=== PATIENT | male | born 1940 | race Caucasian/White ===

== ENCOUNTER 2018-12-20 17:20 | Inpatient (IN) | payer MEDICARE, OTHER ==
[~2018-12-20] VITALS: Ht 167.6 cm; Wt 63.5 kg
[~2018-12-20 17:20] MED LIST: ALEN40TA2 PO; ASPI-650 PO; CLOP75TA19 PO; ESOM40CA PO; EZET10TA31 PO; LOSA1TAB25 PO; METH10TA5 PO; OLAN7.5T5 PO
--- NOTE | 2018-12-20 17:42 | ERD ---
ER Documentation Chief Complaint Chief Complaint CP HPI The patient is 78-year-old male, presenting to the ER because of right-sided chest pain, dyspnea after he fell a week ago. He was seen at [facility] a week ago and again 2 days ago. He was given [place] for pain and now complains of constipation. The right-sided chest pain is worse with movement and breathing. He denies fever, chills, complains of vague right-sided abdominal pain, denies nausea, vomiting, dysuria. He smokes half a pack a day, denies drinking family said that he. He had a near syncopal episode because of the pain Past medical history: Hypertension, CAD, asthma, COPD, depression, dyslipidemia Past surgical history: Back, appendectomy ROS All systems reviewed and are negative except as per history of present illness. Medications Home Meds Reported Medications Salmeterol Xinaf-Fluticasone* (Advair*) 500/50 Diskus Inhaler, 1 INH INHALATION BID, #1 INHALER 12/20/18 Alendronate Sodium* (Fosamax*) 70 Mg Tablet, 70 MG PO Q 2 WEEK, #4 TAB 12/20/18 Ezetimibe* (Zetia*) 10 Mg Tablet, 10 MG PO HS, TAB 12/20/18 Losartan-Hydrochlorothiazide (Losartan-HCTZ) 100-25 Mg Tab, 1 TAB PO DAILY, TAB 12/20/18 Simvastatin* (Zocor*) 40 Mg Tablet, 40 MG PO QHS, #30 TAB 12/20/18 Folic Acid* (Folic Acid*) 1 Mg Tablet, 1 MG PO DAILY, TAB 12/20/18 Ergocalciferol (Vitamin D2) (VITAMIN D2) 50,000 Unit Capsule, 56204 UNIT PO Q 2 WEEK, CAP 12/20/18 Ferrous Sulfate* (Ferrous Sulfate*) 325 Mg Tabec, 325 MG PO BID, TAB 12/20/18 Clonidine Hcl* (Clonidine Hcl*) 0.1 Mg Tab, 0.1 MG PO BID PRN for NEEDED, TAB 12/20/18 [place]-3 Acid Ethyl Esters (Lovaza) 1 Gm Capsule, 2 GM PO BID, CAP 12/20/18 Pregabalin* (Lyrica*) 75 Mg Capsule, 75 MG PO DAILY, CAP 12/20/18 Vbtmqy-Dkxzmqhq-Vdfrjwi* (Creon DR* 24,000) 24,000 L-76,000-120,000 Unit Capsule.dr, 1 CAP PO WITH MEALS, CAP 12/20/18 Clopidogrel Bisulfate* (Clopidogrel Bisulfate*) 75 Mg Tablet, 75 MG PO DAILY, #3 0 TAB 12/20/18 Discontinued Reported Medications Alendronate Sodium* (Alendronate Sodium*) 40 Mg Tablet, 70 MG PO DAILY, TAB 05/16/14 Esomeprazole Mag Trihydrate (Nexium) 40 Mg Capsule.dr, 40 MG PO DAILY, CAP 05/16/14 Methimazole* (Methimazole*) 10 Mg Tablet, 10 MG PO BID, TAB 05/16/14 Losartan-Hydrochlorothiazide (Losartan-HCTZ) 100-25 Mg Tab, 1 TAB PO DAILY, TAB 05/16/14 Clopidogrel Bisulfate* (Clopidogrel Bisulfate*) 75 Mg Tablet, 75 MG PO DAILY, TAB 05/16/14 Olanzapine* (Olanzapine*) 7.5 Mg Tablet, 5 MG PO DAILY, TAB 05/16/14 Ezetimibe* (Zetia*) 10 Mg Tablet, 10 MG PO DAILY, TAB 05/16/14 Aspirin (Aspirin) 81 Mg Tablet, 81 MG PO DAILY 05/19/12 Allergies Allergies: Coded Allergies: No Known Allergy (Verified , 12/20/18) PMhx/Soc History of Surgery: Yes (BACK SX., APPENDECTOMY, S/P ANGIOPLASTY) Anesthesia Reaction: No Hx Neurological Disorder: No Hx Respiratory Disorders: Yes (ASTHMA, COPD, HX. OF PNA, SOB) Hx Cardiac Disorders: No Hx Psychiatric Problems: Yes (DEPRESSION) Hx Miscellaneous Medical Probl: No (HTN, HIGH CHOLESTEROL) Hx Alcohol Use: Yes Hx Substance Use: No Hx Tobacco Use: No Physical Exam Vitals Vital Signs Date Temp Pulse Resp B/P (MAP) Pulse Ox O2 O2 Flow FiO2 Time Delivery Rate 12/20/18 110 19 162/82 95 Room Air 17:30 (108) 12/20/18 98.8 110 18 164/81 94 17:25 (108) Physical Exam Const: No acute distress. Head: Atraumatic. Eyes: Normal Conjunctiva. ENT: Normal External Ears, Nose and Mouth. Neck: Full range of motion. No meningismus. Resp: Tachypneic, mild bilateral expiratory wheezes, basilar crackle. Cardio: Regular tachycardic. Abd: Soft, non distended, normal bowel sounds, mild to moderate right-sided abdominal tenderness, no rigidity/rebound/CVA tenderness Skin: No petechiae or rashes. Back: No midline or flank tenderness. Ext: No cyanosis, or edema. Neur: Awake and alert. No focal deficit Psych: Normal Mood and Affect. Result Diagram: 12/20/18 18012/20/18 180 Results 24 hrs Laboratory Tests Test 12/20/18 18:05 12/20/18 18:33 White Blood Count 16.2 10^3/ul Red Blood Count 4.63 10^6/ul Hemoglobin 12.3 g/dl Hematocrit 37.5 % Mean Corpuscular Volume 81.0 fl Mean Corpuscular Hemoglobin 26.6 pg Mean Corpuscular Hemoglobin Concent 32.8 g/dl Red Cell Distribution Width 16.1 % Platelet Count 262 10^3/UL Mean Platelet Volume 12.2 fl Immature Granulocytes % 0.900 % Neutrophils % 81.7 % Lymphocytes % 8.8 % Monocytes % 7.2 % Eosinophils % 1.0 % Basophils % 0.4 % Nucleated Red Blood Cells % 0.0 /100WBC Immature Granulocytes # 0.150 10^3/ul Neutrophils # 13.2 10^3/ul Lymphocytes # 1.4 10^3/ul Monocytes # 1.2 10^3/ul Eosinophils # 0.2 10^3/ul Basophils # 0.1 10^3/ul Nucleated Red Blood Cells # 0.0 10^3/ul Prothrombin Time 13.1 Sec Prothrombin Time Ratio 1.0 INR International Normalized Ratio 0.98 Activated Partial Thromboplast Time 31.5 Sec Sodium Level 140 mmol/L Potassium Level 4.5 mmol/L Chloride Level 106 mmol/L Carbon Dioxide Level 23 mmol/L Anion Gap 11 Blood Urea Nitrogen 28 mg/dl Creatinine 1.41 mg/dl Est Glomerular Filtrat Rate mL/min mL/min Glucose Level 132 mg/dl Calcium Level 9.8 mg/dl Total Bilirubin 0.1 mg/dl Direct Bilirubin 0.00 mg/dl Indirect Bilirubin 0.1 mg/dl Aspartate Amino Transf (AST/SGOT) 39 IU/L Alanine Aminotransferase (ALT/SGPT) 13 IU/L Alkaline Phosphatase 79 IU/L Troponin I 0.036 ng/ml Total Protein 7.9 g/dl Albumin 4.3 g/dl Globulin 3.60 g/dl Albumin/Globulin Ratio 1.19 Lipase 60 U/L Bedside Urine pH (LAB) 5.5 Bedside Urine Protein (LAB) 3+ Bedside Urine Glucose (UA) Negative Bedside Urine Ketones (LAB) Negative Bedside Urine Blood 1+ Bedside Urine Nitrite (LAB) Negative Bedside Urine Leukocyte Esterase (L Negative Current Medications Medications Dose Sig/Del Start Time Status Last (Trade) Ordered Route PRN Stop Time Admin Dose Reason Admin Morphine 4 mg ONCE STAT 12/20/18 DC 12/20/18 Sulfate IV 17:58 18:04 (morphine) 12/20/18 18:01 Ondansetron 4 mg ONCE STAT 12/20/18 DC 12/20/18 HCl (Zofran IV 17:58 18:04 Inj) 12/20/18 18:01 Sodium 1,000 ml @ Q1H ONCE 12/20/18 DC 12/20/18 Chloride 1,000 mls/hr IV 19:30 19:22 12/20/18 20:53 Sodium 1,950 ml BOLUS OVER 2 12/20/18 DC Chloride HOURS STAT 20:33 (NS) IV* 12/20/18 20:35 Vancomycin 250 ml @ ONCE ONCE 12/20/18 HCl 125 mls/hr IVPB 21:00 12/20/18 22:59 Cefepime HCl 50 ml @ ONCE ONCE 12/20/18 DC 100 mls/hr IVPB 21:00 12/20/18 21:00 1.25 mg ONCE ONCE 12/20/18 Levalbuterol HHN 21:00 (Xopenex 12/20/18 21:01 Neb) Ipratropium 0.5 mg ONCE ONCE 12/20/18 [place] HHN 21:00 (Atrovent 12/20/18 21:01 0.02% (Neb)) Cefepime HCl 50 ml @ Q12 IVPB 12/20/18 100 mls/hr 21:00 Vancomycin VANCOMYCIN PER 12/20/18 UNV HCl (Vanco PER PHARMACY PROTOCOL XX 21:00 Iv Per Pharmacy) 1.25 mg Q4H RESP 12/20/18 UNV Levalbuterol THERAPY PRN 21:00 (Xopenex HHN wheezing Neb) 1.25 mg Q6H RESP 12/21/18 UNV Levalbuterol THERAPY HHN 02:00 (Xopenex Neb) Ipratropium 0.5 mg Q2H RESP 12/20/18 UNV [place] THERAPY PRN 21:00 (Atrovent HHN 0.02% SHORTNESS OF (Neb)) BREATH Ipratropium 0.5 mg Q6HWA RESP 12/21/18 UNV [place] THERAPY HHN 08:00 (Atrovent 0.02% (Neb)) Budesonide 0.5 mg BID RESP 12/21/18 UNV (Pulmicort THERAPY HHN 09:00 (Neb)) IV Flush 3 ml PER 12/20/18 UNV (NS 3 ml) PROTOCOL IV 21:00 Ondansetron 4 mg Q6H PRN 12/20/18 UNV HCl (Zofran IV 21:00 Inj) NAUSEA/VOMITI NG 650 mg Q6H PRN 12/20/18 UNV Acetaminophen PO .PAIN 1-3 21:00 (Tylenol OR TEMP Tab) 1 tab Q6H PRN 12/20/18 UNV Acetaminophen PO .PAIN 4-6 21:00 / Hydrocodone Bitart ([place] (5/325)) Labetalol 10 mg Q4 PRN IV 12/20/18 UNV HCl sbp >160 21:00 (Labetalol) Procedures/[place] [address] Radiology Main Line: [phone] DIAGNOSTIC IMAGING REPORT Patient: ATIF FRANKLIN : 1940 Age: 78 Sex: M [id number] DOS: 12/20/18 1758 Ordering MD: SÁNCHEZ MELO MD Location: E/R Room/Bed: PROCEDURE: CT Abdomen and Pelvis without contrast. CLINICAL INDICATION: Abdominal pain. TECHNIQUE: CT scan of the abdomen and pelvis without contrast was performed on a multidetector CT scanner. The patient was scanned without intravenous contrast. Coronal and sagittal reformatted images were obtained from the axial source images. Images were reviewed on a high-resolution PACS workstation. DICOM images are available. One or more of the following dose reduction techniques were used: -Automated exposure control. -Adjustment of the mA and/or kV according to patient size. -Use of iterative reconstruction technique. The total exam CTDI equals 6.51 mGy and the total exam DLP equals 392.85 mGy-cm. COMPARISON: Correlation with chest CT 12/14/2018. CT abdomen pelvis 11/05. FINDINGS: Please note that the sensitivity for detection of focal lesions or vascular dis ease is markedly reduced without intravenous contrast. Incomplete imaged bibasilar peribronchial thickening with patchy air space opacities. Trace pericardial effusion. CT abdomen: Liver: Unremarkable. Biliary system: No intra or extrahepatic biliary ductal dilatation. Gallbladder: Unremarkable. Pancreas: Unremarkable. Spleen: Unremarkable. Adrenal glands: Unremarkable. Right kidney: Unremarkable. No renal or ureteric stones. No hydronephrosis or hydroureter. Left kidney: Unremarkable. No renal or ureteric stones. No hydronephrosis or hydroureter. Bowel loops: Scattered diverticulosis without acute diverticulitis. There is no bowel obstruction. Lymph Nodes: There is no mesenteric lymphadenopathy. There is no retroperitoneal lymphadenopathy. CT pelvis: Rectum: Unremarkable. Urinary bladder: Unremarkable. Unenhanced prostate grossly unremarkable. Incomplete imaged penile implant. Lymph nodes: There is no iliac lymphadenopathy. There is no inguinal l ymphadenopathy. Bone: No aggressive osseous lesions. There are mild multilevel degenerative changes of the imaged spine. There is moderate atherosclerotic disease. IMPRESSION: 1. Incompletely imaged bibasilar peribronchial thickening with patchy air space opacities, likely representing multifocal pneumonia in the proper clinical setting. 2. Trace pericardial effusion. 3. Atherosclerosis. 4. Scattered diverticulosis without acute diverticulitis. Otherwise no acute abnormality of the abdomen or pelvis. RPTAT: [facility] Physician Sarath Date Time Electronically viewed and signed by Mary Anne Horton Physician on 12/20/2018 20:16 PH/ CC: SÁNCHEZ MELO MD [id number] [place] [address] Radiology Main Line: [phone] DIAGNOSTIC IMAGING REPORT Patient: ATIF FRANKLIN : 1940 Age: 78 Sex: M MR #: [id number] DOS: 12/20/18 1758 Ordering MD: SÁNCHEZ MELO MD Location: E/R Room/Bed: PROCEDURE: XR Chest. CLINICAL INDICATION: chest pain TECHNIQUE: Single AP view of the chest was obtained COMPARISON: 12/17/2018 FINDINGS: The heart and mediastinum are within normal limits. The pulmonary vasculature are unremarkable. The aorta demonstrates atherosclerotic calcifications. There is no lung consolidation, pleural effusion or pneumothorax. Degenerative change s are seen within the thoracic spine and shoulders. There is no acute osseous abnormality. IMPRESSION: No acute disease. RPTAT: AA .Judith Hoover MD, MD Date Time Electronically viewed and signed by .Judith Hoover MD, MD on 12/20/2018 18:46 .J/ CC: SÁNCHEZ MELO MD [id number] [place] [address] Radiology Main Line: [phone] DIAGNOSTIC IMAGING REPORT Patient: ATIF FRANKLIN : 1940 Age: 78 Sex: M MR #: [id number] DOS: 12/20/18 0000 Ordering MD: SÁNCHEZ MELO MD Location: E/R Room/Bed: PROCEDURE: CT chest without contrast. CLINICAL INDICATION: Pain TECHNIQUE: CT scan of the chest without contrast was performed on a multi- slice CT scanner. The patient was scanned without administration of intravenous contrast. Coronal and sagittal reformatted images were obtained from the axial source images. CTDIvol 272.7 mGy DLP 6.7 mGy-cm One or more of the following dose reduction techniques were used: Automated exposure control. Adjustment of the mA and/or kV according to patient size. Use of iterative reconstruction technique. DICOM images are available COMPARISON: 12/15/2018 FINDINGS: Lungs: Patchy bilateral lower lung areas of consolidation and ground-glass are present with bilateral trace layering effusions. Foci of bibasilar airways occlusion are present. There is generalized airways wall thickening. Mild debris is seen layering within the bronchus intermedius. Emphysema is present within the lungs with bilateral areas of subpleural scarring. Mediastinum: Normal. Cardiovascular: Aortic and coronary artery atherosclerotic calcifications are present. The vascular structures are normal in course and caliber. Lymph nodes: There are no enlarged axillary or mediastinal lymph nodes. Musculoskeletal: Degenerative changes are seen within the thoracic spine and shoulders with no acute osseous abnormality. Upper abdomen: Abdominal findings were given on a separate report. Other: None IMPRESSION: Development of moderate bilateral lower lung areas of patchy consolidation and ground-glass are present with bilateral trace layering effusions. This is suggestive for pneumonia. Bibasilar areas of airways occlusion may represent mucous plugging or aspiration. Bilateral airways wall thickening is seen which could represent airways inflammation which may be chronic. Moderate emphysema. Atherosclerotic disease is present. RPTAT: AA .Judith Hoover MD, MD Date Time Electronically viewed and signed by .Judith Hoover MD, MD on 12/20/2018 20:24 .J/ CC: SÁNCHEZ MELO MD [id number] EKG: Read by emergency physician Rate/Rhythm: Sinus tachycardia 118 beats/min QRS, ST, T-waves: No ST elevation, no T inversion, LAD, artifact Impression: Abnormal EKG MEDICAL MAKING DECISION: The patient is a 78-year-old male, presenting with ac [place] pneumonia, acute dehydration, constipation, hematuria. He was treated with Xopenex 125 mg and Atrovent 0.5 mg for wheezing, vancomycin IV, cefepime IV, normosaline 30 mm/kg IV for acute pneumonia, morphine 4 mg IV for pain, Zofran 4 mg IV for nausea with good response Departure Diagnosis: Primary Impression: PNA (pneumonia) Additional Impressions: Dehydration Hematuria Constipation Anemia Renal insufficiency Condition: Stable Comments I discussed the findings with the patient. I discussed the patient with the hospitalist Dr Nuñez at 8:40 pm. who was made aware of the lab, the treatment, the patient condition. The patient is admitted to [facility] Disclaimer: Inadvertent spelling and grammatical errors are likely due to EHR/dictation software use and do not reflect on the overall quality of patient care. Also, please note that the electronic time recorded on this note does not necessarily reflect the actual time of the patient encounter. SÁNCHEZ MELO MD Dec 20, 2018 17:42
[2018-12-20] MEDS ORDERED: morphine 4 MG/ML VIAL IV STA (17:58)
[2018-12-20] MEDS ORDERED: ONDANSETRON 4 MG INJ IV STA (17:58)
[2018-12-20] MEDS ORDERED: CLOP75TA19 PO (18:35)
[2018-12-20] MEDS ORDERED: LIPA1CAP6 PO (18:36)
[2018-12-20] MEDS ORDERED: LYR75 PO (18:37)
[2018-12-20] MEDS ORDERED: CLON-379 PO (18:39)
[2018-12-20] MEDS ORDERED: OMEG1CAP2 PO (18:39)
[2018-12-20] MEDS ORDERED: FER325 PO (18:41)
[2018-12-20] MEDS ORDERED: FOLI-49 PO (18:42)
[2018-12-20] MEDS ORDERED: ERGO500013 PO (18:42)
[2018-12-20] MEDS ORDERED: LOSA1TAB25 PO (18:43)
[2018-12-20] MEDS ORDERED: SIMV40TA2 PO (18:43)
[2018-12-20] MEDS ORDERED: EZET10TA31 PO (18:44)
[2018-12-20] MEDS ORDERED: ALEN70TA5 PO (18:44)
[2018-12-20] MEDS ORDERED: ADV50050 INHALATION (18:45)
[2018-12-20] MEDS ORDERED: SOD CHLORIDE 0.9% 1,000 ML IV ONE (19:30)
[2018-12-20] MEDS ORDERED: SODIUM CHLORIDE 0.9% 1L BAG IV* STA (20:33)
[2018-12-20] MEDS ORDERED: CEFEPIME 1GM/50 ML (PMX) 50 ML IVPB ONE (21:00)
[2018-12-20] MEDS ORDERED: VANCOMYCIN IV PER PHARMACY XX SCH (21:00)
[2018-12-20] MEDS ORDERED: ACETAMINOPHEN 325 MG TAB PO PRN (21:00)
[2018-12-20] MEDS ORDERED: LEVALBUTEROL (NEB) 1.25 MG/0.5 ML AMP HHN ONE (21:00)
[2018-12-20] MEDS ORDERED: NACL 0.9% 3 ML SYG IV SCH (21:00)
[2018-12-20] MEDS ORDERED: VANCOMYCIN 1 GM (PMX) 250 ML IVPB ONE (21:00)
[2018-12-20] MEDS ORDERED: IPRATROPIUM (NEB) 0.5 MG/2.5 ML AMP HHN ONE (21:00)
[2018-12-20] MEDS ORDERED: IPRATROPIUM (NEB) 0.5 MG/2.5 ML AMP HHN PRN (21:00)
[2018-12-20] MEDS ORDERED: ONDANSETRON 4 MG INJ IV PRN (21:00)
[2018-12-20] MEDS ORDERED: LEVALBUTEROL (NEB) 1.25 MG/0.5 ML AMP HHN PRN (21:00)
[2018-12-20] MEDS ORDERED: LABETALOL HCL 20MG INJ IV PRN (21:00)
[2018-12-20] MEDS: CEFEPIME 1GM/50 ML (PMX) 50 ML IVPB SCH (21:07)
--- NOTE | 2018-12-20 21:19 | HP ---
Date/Time of Note Date/Time of Note DATE: 12/20/18 TIME: 21:18 Assessment/Plan VTE Prophylaxis Pharmacological prophylaxis: other Lines/Catheters IV Catheter Type (from Nrsg): Peripheral IV Assessment/Plan Hospital Course Objective Physical exam General: Patient is laying in bed and answers questions appropriately Mentation: Patient is alert and oriented 4, Head: Normocephalic atraumatic Eyes: EOMI, pupils reactive to light Neck: Supple, nontender, midline Respiratory: Wheezing to auscultation bilaterally Cardiovascular: regular rate, no obvious murmurs Gastrointestinal: Mildly tender to palpation, bowel sounds heard. Neurological: Moves all extremities spontaneously Skin: No new skin lesions Assessment and plan Multifocal pneumonia -IV antibiotic -Nebulizers Sepsis secondary to pneumonia -Broad-spectrum antibiotic -Blood cultures -Mild hydration Shortness of breath -Secondary to pneumonia and acute on chronic COPD COPD exacerbation -Very mild at this time likely due to pneumonia -Nebulizers -Needs to stop smoking -Able to tolerate room air Acute kidney injury versus chronic kidney disease -May be secondary to volume depletion as patient has not been eating or drinking well in the past few days, very mild creatinine elevation, will hydrate and reassess in the a.m. Questionable syncope -Patient doing okay however will get CT of the head to assess -Syncope was last witnessed approximately 3 days ago, no episodes since -Ultrasound carotid as well as echocardiogram ordered Rib pain -Due to fall approximately 1 week ago, no abnormality seen on CT of the chest Constipation -Secondary to patient taking [place], added Colace and MiraLAX as needed Peripheral vascular disease -Continue Plavix, not on baby aspirin Hypertension next-hold losartan and HIDA chlorothiazide as may make acute kidney injury worse, treat as needed Dyslipidemia -Continue home meds Disposition -Admit patient for multifocal pneumonia and mild COPD exacerbation. Result Diagram: 12/20/18 18012/20/181804 Results 24hrs Laboratory Tests Test 12/20/18 18:05 12/20/18 18:33 White Blood Count 16.2 H Red Blood Count 4.63 L Hemoglobin 12.3 L Hematocrit 37.5 L Mean Corpuscular Volume 81.0 L Mean Corpuscular Hemoglobin 26.6 L Mean Corpuscular Hemoglobin Concent 32.8 Red Cell Distribution Width 16.1 H Platelet Count 262 Mean Platelet Volume 12.2 H Immature Granulocytes % 0.900 H Neutrophils % 81.7 H Lymphocytes % 8.8 L Monocytes % 7.2 Eosinophils % 1.0 Basophils % 0.4 Nucleated Red Blood Cells % 0.0 Immature Granulocytes # 0.150 H Neutrophils # 13.2 H Lymphocytes # 1.4 Monocytes # 1.2 H Eosinophils # 0.2 Basophils # 0.1 Nucleated Red Blood Cells # 0.0 Prothrombin Time 13.1 Prothrombin Time Ratio 1.0 INR International Normalized Ratio 0.98 Activated Partial Thromboplast Time 31.5 Sodium Level 140 Potassium Level 4.5 Chloride Level 106 Carbon Dioxide Level 23 Anion Gap 11 Blood Urea Nitrogen 28 H Creatinine 1.41 H Est Glomerular Filtrat Rate mL/min Glucose Level 132 Calcium Level 9.8 Total Bilirubin 0.1 L Direct Bilirubin 0.00 Indirect Bilirubin 0.1 Aspartate Amino Transf (AST/SGOT) 39 Alanine Aminotransferase (ALT/SGPT) 13 Alkaline Phosphatase 79 Troponin I 0.036 Total Protein 7.9 Albumin 4.3 Globulin 3.60 H Albumin/Globulin Ratio 1.19 Lipase 60 Bedside Urine pH (LAB) 5.5 Bedside Urine Protein (LAB) 3+ H Bedside Urine Glucose (UA) Negative Bedside Urine Ketones (LAB) Negative Bedside Urine Blood 1+ H Bedside Urine Nitrite (LAB) Negative Bedside Urine Leukocyte Esterase (L Negative HPI/ROS Admit Date/Time Admit Date/Time Hx of Present Illness Patient is a male with a past medical history significant for severe COPD still smoking, dyslipidemia, peripheral vascular disease, hypertension who presents to [facility] for multiple complaints. According to family at bedside this all began approximately 1 week ago when patient had a fall was witnessed with questionable syncope patient subsequently went to another hospital where they make sure that he had no broken bones and was discharged with [place]. Patient has been taking [place] for that rib pain from the fall and subsequently also became constipated stated he had some mild abdominal pain. Patient's respiratory status at this time also continued to get worse and patient was brought into the ED today. Current patient only has mild shortness of breath, cough, no chest pain at rest but chest pain when having severe coughing and mild abdominal pain and complains of constipation. Patient denies chest pain when not coughing, dizziness, nausea, vomiting, leg pain PMH/Family/Social Past Medical History Medications Current Medications Vancomycin HCl 250 ml @ 125 mls/hr ONCE ONCE IVPB ; Start 12/20/18 at 21:00; Stop 12/20/18 at 22:59 Cefepime HCl 50 ml @ 100 mls/hr Q12 IVPB Last administered on 12/20/18at 21:07; Admin Dose 100 MLS/HR; Start 12/20/18 at 21:00 Vancomycin HCl (Vanco Iv Per Pharmacy) VANCOMYCIN PER PHARMACY PER PROTOCOL XX ; Start 12/20/18 at 21:00; Status UNV Levalbuterol (Xopenex Neb) 1.25 mg Q4H RESP THERAPY PRN HHN wheezing; Start 12/20/18 at 21:00 Levalbuterol (Xopenex Neb) 1.25 mg Q6H RESP THERAPY HHN ; Start 12/21/18 at 02:00 Ipratropium [place] (Atrovent 0.02% (Neb)) 0.5 mg Q2H RESP THERAPY PRN HHN SHORTNESS OF BREATH; Start 12/20/18 at 21:00 Ipratropium [place] (Atrovent 0.02% (Neb)) 0.5 mg Q6HWA RESP THERAPY HHN ; Start 12/21/18 at 08:00 Budesonide (Pulmicort (Neb)) 0.5 mg BID RESP THERAPY HHN ; Start 12/21/18 at 09:00 IV Flush (NS 3 ml) 3 ml PER PROTOCOL IV ; Start 12/20/18 at 21:00 Ondansetron HCl (Zofran Inj) 4 mg Q6H PRN IV NAUSEA/VOMITING; Start 12/20/18 at 21:00 Acetaminophen (Tylenol Tab) 650 mg Q6H PRN PO .PAIN 1-3 OR TEMP; Start 12/20/18 at 21:00 Acetaminophen/ Hydrocodone Bitart ([place] (5/325)) 1 tab Q6H PRN PO .PAIN 4-6; Start 12/20/18 at 21:00 Labetalol HCl (Labetalol) 10 mg Q4H PRN IV sbp >160; Start 12/20/18 at 21:00 Clopidogrel Bisulfate (plaVIX) 75 mg DAILY PO ; Start 12/21/18 at 09:00; Status UNV EZETIMIBE (Zetia) 10 mg HS PO ; Start 12/21/18 at 21:00; Status UNV Ferrous Sulfate (Ferrous Sulfate (Ec)) 325 mg BID PO ; Start 12/21/18 at 09:00; Status UNV Folic Acid (Folic Acid) 1 mg DAILY PO ; Start 12/21/18 at 09:00; Status UNV Amylase/Lipase/ Protease (Creon ([id number])) 1 cap WITH MEALS PO ; Start 12/21/18 at 08:00; Status UNV Pregabalin (Lyrica) 75 mg DAILY PO ; Start 12/21/18 at 09:00; Status UNV Miscellaneous Information 40 mg QHS PO ; Start 12/21/18 at 21:00; Status UNV Docusate Sodium (Colace) 100 mg BID PO ; Start 12/20/18 at 21:30; Status UNV Sodium Chloride 1,000 ml @ 30 mls/hr Q24H IV ; Start 12/20/18 at 21:30; Status UNV Polyethylene Glycol (Miralax) 17 gm DAILY PRN PO CONSTIPATION; Start 12/20/18 at 21:30; Status UNV Coded Allergies: No Known Allergy (Verified , 12/20/18) Social History Smoking Status: Unknown if ever smoked Exam/Review of Systems Vital Signs Vitals Vital Signs Date Temp Pulse Resp B/P (MAP) Pulse Ox O2 O2 Flow FiO2 Time Delivery Rate 12/20/18 98 20 97 Nasal 2.0 20:59 Cannula 12/20/18 162/82 17:30 (108) 12/20/18 98.8 17:25 TIM DONNELLY Dec 20, 2018 21:19
--- NOTE | 2018-12-20 21:38 | NUR ---
VANCOMYCIN PER PHARMACY NOTE PT WT: 65 KG, PT HT: 5'6" VANCOMYCIN 1 GRAM IV X 1 WAS GIVEN IN ER. PLEASE START MAINTENANCE DOSE OF VANCOMYCIN 750MG IV Q24 HOURS FOR NOW (STARTING 12/21 AT 1600). PHARMACY WILL FOLLOW. THANK YOU.
[2018-12-20] MEDS: SOD CHLORIDE 0.9% 1,000 ML IV SCH (22:19)
[2018-12-20] MEDS: DOCUSATE SODIUM 100 MG CAP PO SCH (22:19)
[2018-12-20] MEDS: HYDROCODONE/APAP (5/325) TAB PO PRN ×2 (23:39→23:57)
[2018-12-21] VITALS (19 sets, daily range): BP systolic 116–173; BP diastolic 69–84; PULSE 84–121; RESP 18–33; Ht 167.6 cm; Wt 63.5 kg
[2018-12-21] MEDS ORDERED: GUAIFENESIN/DM 5ML CUP PO ONE (00:30)
[2018-12-21] MEDS: POLYETHYLENE GLYCOL 17 GM PACKET PO PRN ×2 (02:43→20:37)
[2018-12-21] MEDS: SOD CHLORIDE 0.9% 1,000 ML IV SCH (02:50)
[2018-12-21] MEDS: LEVALBUTEROL (NEB) 1.25 MG/0.5 ML AMP HHN SCH ×4 (03:06→20:00)
--- NOTE | 2018-12-21 06:15 | NUR ---
end of shift report pt was brought from ER at 0220. pt arrived with 2L nc. pt alert and oriented x4. admissions questions done with patient. pt had no IV fluids running when arrived from ER. NS at 30ml started as ordered. pt slept well the whole night.
[2018-12-21] MEDS: HYDROCODONE/APAP (5/325) TAB PO PRN ×4 (06:37→20:41)
[2018-12-21] MEDS: DOCUSATE SODIUM 100 MG CAP PO SCH ×2 (08:23→20:37)
[2018-12-21] MEDS: CREON (24K-76K-120K) 1 CAP PO SCH ×3 (08:23→17:53)
[2018-12-21] MEDS: CLOPIDOGREL 75 MG TAB PO SCH (08:24)
[2018-12-21] MEDS: FOLIC ACID 1 MG TAB PO SCH (08:24)
[2018-12-21] MEDS: CEFEPIME 1GM/50 ML (PMX) 50 ML IVPB SCH ×2 (08:24→20:37)
[2018-12-21] MEDS: FERROUS SULFATE (EC) 325 MG TAB PO SCH ×2 (08:24→20:37)
[2018-12-21] MEDS: IPRATROPIUM (NEB) 0.5 MG/2.5 ML AMP HHN SCH ×3 (08:57→20:00)
[2018-12-21] MEDS: BUDESONIDE (NEB) 0.5MG/2ML AMP HHN SCH ×2 (08:57→20:00)
[2018-12-21] MEDS: PREGABALIN 75 MG CAP PO SCH (09:38)
[2018-12-21] MEDS: NICOTINE (21 MG/24 HR) PATCH TRANSDERM SCH (09:39)
[2018-12-21] MEDS: PROMETHAZINE/CODEINE 5ML CUP PO PRN ×2 (09:43→16:39)
--- NOTE | 2018-12-21 11:50 | PN ---
Date/Time of Note Date/Time of Note DATE: 12/21/18 TIME: 11:43 Assessment/Plan VTE Prophylaxis Risk score (from Nsg)>0 risk: 5 SCD applied (from Nsg): Yes Pharmacological prophylaxis: heparin Lines/Catheters IV Catheter Type (from Nrsg): Peripheral IV Urinary Cath still in place: No Assessment/Plan Hospital Course 78 yo male with ho COPD, PAD/CAD who suffered mechanical fall leading to rib trauma who presents with rib pain and found to have pneuomnia and likely CHF Multifocal pneumonia - Suspect this is related to splingintg from rib apin -IV antibiotic -Nebulizers Acute diastolic CHF: - Lasix - TTE pending Rib pain: - No fractures on CT. Pain control. Will add lidoderm patch COPD exacerbation -Very mild at this time likely due to pneumonia -Nebulizers -Needs to stop smoking -Able to tolerate room air Acute kidney injury versus chronic kidney disease -May be secondary to volume depletion as patient has not been eating or drinking well in the past few days, very mild creatinine elevation, will hydrate and reassess in the a.m. Questionable syncope -Patient doing okay however will get CT of the head to assess -Syncope was last witnessed approximately 3 days ago, no episodes since -Ultrasound carotid as well as echocardiogram ordered Constipation -Secondary to patient taking [place], added Colace and MiraLAX as needed Peripheral vascular disease -Continue Plavix, not on baby aspirin Hypertension next-hold losartan and HIDA chlorothiazide as may make acute kidney injury worse, treat as needed Dyslipidemia -Continue home meds Disposition -Admit patient for multifocal pneumonia and mild COPD exacerbation Result Diagram: 12/21/18 0453 12/21/18 0453 Results 24hrs Laboratory Tests Test 12/20/18 18:05 12/20/18 18:33 12/21/18 00:37 12/21/18 04:53 White Blood Count 16.2 H 12.7 #H Red Blood Count 4.63 L 3.89 L Hemoglobin 12.3 L 10.4 L Hematocrit 37.5 L 31.7 L Mean Corpuscular 81.0 L 81.5 L Volume Mean Corpuscular 26.6 L 26.7 L Hemoglobin Mean Corpuscular 32.8 32.8 Hemoglobin Concent Red Cell 16.1 H 15.8 H Distribution Width Platelet Count 262 223 Mean Platelet Volume 12.2 H 11.7 H Immature 0.900 H 0.900 H Granulocytes % Neutrophils % 81.7 H 77.4 H Lymphocytes % 8.8 L 12.3 L Monocytes % 7.2 7.4 Eosinophils % 1.0 1.5 Basophils % 0.4 0.5 Nucleated Red Blood 0.0 0.0 Cells % Immature 0.150 H 0.110 H Granulocytes # Neutrophils # 13.2 H 9.9 H Lymphocytes # 1.4 1.6 Monocytes # 1.2 H 0.9 Eosinophils # 0.2 0.2 Basophils # 0.1 0.1 Nucleated Red Blood 0.0 0.0 Cells # Prothrombin Time 13.1 Prothrombin Time 1.0 Ratio INR International 0.98 Normalized Ratio Activated 31.5 Partial Thromboplast Time Sodium Level 140 138 Potassium Level 4.5 4.3 Chloride Level 106 110 Carbon Dioxide Level 23 25 Anion Gap 11 3 #L Blood Urea Nitrogen 28 H 22 H Creatinine 1.41 H 1.36 H Est Glomerular Filtrat Rate mL/min Glucose Level 132 110 Calcium Level 9.8 8.6 Total Bilirubin 0.1 L 0.1 L Direct Bilirubin 0.00 0.00 Indirect Bilirubin 0.1 0.1 Aspartate Amino 39 26 Transf (AST/SGOT) Alanine 13 20 Aminotransferase (AL T/SGPT) Alkaline Phosphatase 79 60 Troponin I 0.036 Total Protein 7.9 6.5 # Albumin 4.3 3.3 # Globulin 3.60 H 3.20 Albumin/Globulin 1.19 1.03 Ratio Lipase 60 Bedside Urine pH 5.5 (LAB) Bedside Urine 3+ H Protein (LAB) Bedside Urine Negative Glucose (UA) Bedside Urine Negative Ketones (LAB) Bedside Urine Blood 1+ H Bedside Urine Negative Nitrite (LAB) Bedside Urine Negative Leukocyte Esterase (L Lactic Acid Level 1.6 Hemoglobin A1c 5.8 Magnesium Level 2.0 Triglycerides Level 129 Cholesterol Level 141 LDL Cholesterol, 76 Calculated HDL Cholesterol 39 Cholesterol/HDL 3.6 Ratio Subjective 24 Hr Interval Summary Free Text/Dictation Discussed via groundwater consultant. Patient's major complaint is of pain in ribs presents for weeks since fall. He actually says his breathing appears about at baseline. Having frequent coughing Exam/Review of Systems Exam Vitals Vital Signs Date Temp Pulse Resp B/P (MAP) Pulse Ox O2 O2 Flow FiO2 Time Delivery Rate 12/21/18 89 23 142/84 95 Nasal 2.0 10:00 (103) Cannula 12/21/18 97.8 08:00 Intake and Output 12/20/18 12/20/18 12/21/18 1515:00 23:00 07:00 IntakeIntake Total 150 ml BalanceBalance 150 ml Exam A bit uncomfortable appearing Breathign nonlabored but splinting mildly Pain in R ribs + JVD Diffuse rhonchi throughout. No wheezing RRR Abdomen soft nt Ext without edema Results Results 24hrs Laboratory Tests Test 12/20/18 18:05 12/20/18 18:33 12/21/18 00:37 12/21/18 04:53 White Blood Count 16.2 H 12.7 #H Red Blood Count 4.63 L 3.89 L Hemoglobin 12.3 L 10.4 L Hematocrit 37.5 L 31.7 L Mean Corpuscular 81.0 L 81.5 L Volume Mean Corpuscular 26.6 L 26.7 L Hemoglobin Mean Corpuscular 32.8 32.8 Hemoglobin Concent Red Cell 16.1 H 15.8 H Distribution Width Platelet Count 262 223 Mean Platelet Volume 12.2 H 11.7 H Immature 0.900 H 0.900 H Granulocytes % Neutrophils % 81.7 H 77.4 H Lymphocytes % 8.8 L 12.3 L Monocytes % 7.2 7.4 Eosinophils % 1.0 1.5 Basophils % 0.4 0.5 Nucleated Red Blood 0.0 0.0 Cells % Immature 0.150 H 0.110 H Granulocytes # Neutrophils # 13.2 H 9.9 H Lymphocytes # 1.4 1.6 Monocytes # 1.2 H 0.9 Eosinophils # 0.2 0.2 Basophils # 0.1 0.1 Nucleated Red Blood 0.0 0.0 Cells # Prothrombin Time 13.1 Prothrombin Time 1.0 Ratio INR International 0.98 Normalized Ratio Activated 31.5 Partial Thromboplast Time Sodium Level 140 138 Potassium Level 4.5 4.3 Chloride Level 106 110 Carbon Dioxide Level 23 25 Anion Gap 11 3 #L Blood Urea Nitrogen 28 H 22 H Creatinine 1.41 H 1.36 H Est Glomerular Filtrat Rate mL/min Glucose Level 132 110 Calcium Level 9.8 8.6 Total Bilirubin 0.1 L 0.1 L Direct Bilirubin 0.00 0.00 Indirect Bilirubin 0.1 0.1 Aspartate Amino 39 26 Transf (AST/SGOT) Alanine 13 20 Aminotransferase (AL T/SGPT) Alkaline Phosphatase 79 60 Troponin I 0.036 Total Protein 7.9 6.5 # Albumin 4.3 3.3 # Globulin 3.60 H 3.20 Albumin/Globulin 1.19 1.03 Ratio Lipase 60 Bedside Urine pH 5.5 (LAB) Bedside Urine 3+ H Protein (LAB) Bedside Urine Negative Glucose (UA) Bedside Urine Negative Ketones (LAB) Bedside Urine Blood 1+ H Bedside Urine Negative Nitrite (LAB) Bedside Urine Negative Leukocyte Esterase (L Lactic Acid Level 1.6 Hemoglobin A1c 5.8 Magnesium Level 2.0 Triglycerides Level 129 Cholesterol Level 141 LDL Cholesterol, 76 Calculated HDL Cholesterol 39 Cholesterol/HDL 3.6 Ratio Medications Medication Current Medications Cefepime HCl 50 ml @ 100 mls/hr Q12 IVPB Last administered on 12/21/18 08:24; Admin Dose 100 MLS/HR; Start 12/20/18 at 21:00 Vancomycin HCl (Vanco Iv Per Pharmacy) VANCOMYCIN PER PHARMACY PER PROTOCOL XX ; Start 12/20/18 at 21:00 Levalbuterol (Xopenex Neb) 1.25 mg Q4H RESP THERAPY PRN HHN wheezing; Start 12/20/18 at 21:00 Levalbuterol (Xopenex Neb) 1.25 mg Q6H RESP THERAPY HHN Last administered on 12/21/18at 08:57; Admin Dose 1.25 MG; Start 12/21/18 at 02:00 Ipratropium [place] (Atrovent 0.02% (Neb)) 0.5 mg Q2H RESP THERAPY PRN HHN DOC RTNESS OF BREATH Last administered on 12/21/18at 03:06; Admin Dose 0.5 MG; Start 12/20/18 at 21:00 Ipratropium [place] (Atrovent 0.02% (Neb)) 0.5 mg Q6HWA RESP THERAPY HHN Last administered on 12/21/18 08:57; Admin Dose 0.5 MG; Start 12/21/18 at 08:00 Budesonide (Pulmicort (Neb)) 0.5 mg BID RESP THERAPY HHN Last administered on 12/21/18 08:57; Admin Dose 0.5 MG; Start 12/21/18 at 09:00 IV Flush (NS 3 ml) 3 ml PER PROTOCOL IV ; Start 12/20/18 at 21:00 Ondansetron HCl (Zofran Inj) 4 mg Q6H PRN IV NAUSEA/VOMITING Last administered on 12/21/18 06:41; Admin Dose 4 MG; Start 12/20/18 at 21:00 Acetaminophen (Tylenol Tab) 650 mg Q6H PRN PO .PAIN 1-3 OR TEMP; Start 12/20/18 at 21:00 Acetaminophen/ Hydrocodone Bitart ([place] (5/325)) 1 tab Q6H PRN PO .PAIN 4-6 Last administered on 12/21/18 06:37; Admin Dose 1 TAB; Start 12/20/18 at 21:00 Labetalol HCl (Labetalol) 10 mg Q4H PRN IV sbp >160; Start 12/20/18 at 21:00 Clopidogrel Bisulfate (plaVIX) 75 mg DAILY PO Last administered on 12/21/18 08:24; Admin Dose 75 MG; Start 12/21/18 at 09:00 EZETIMIBE (Zetia) 10 mg HS PO ; Start 12/21/18 at 21:00 Ferrous Sulfate (Ferrous Sulfate (Ec)) 325 mg BID PO Last administered on 12/21/18 08:24; Admin Dose 325 MG; Start 12/21/18 at 09:00 Folic Acid (Folic Acid) 1 mg DAILY PO Last administered on 12/21/18 08:24; Admin Dose 1 MG; Start 12/21/18 at 09:00 Amylase/Lipase/ Protease (Creon ([id number])) 1 cap WITH MEALS PO Last administered on 12/21/18 08:23; Admin Dose 1 CAP; Start 12/21/18 at 07:35 Pregabalin (Lyrica) 75 mg DAILY PO Last administered on 12/21/18 09:38; Admin Dose 75 MG; Start 12/21/18 at 09:00 Atorvastatin Calcium (Lipitor) 20 mg QHS PO ; Start 12/21/18 at 21:00 Docusate Sodium (Colace) 100 mg BID PO Last administered on 12/21/18 08:23; Admin Dose 100 MG; Start 12/20/18 at 21:30 Sodium Chloride 1,000 ml @ 30 mls/hr Q24H IV Last administered on 12/21/18 02 :50; Admin Dose 30 MLS/HR; Start 12/20/18 at 21:30 Polyethylene Glycol (Miralax) 17 gm DAILY PRN PO CONSTIPATION Last administered on 12/21/18 02:43; Admin Dose 17 GM; Start 12/20/18 at 21:30 Vancomycin/Sodium Chloride 250 ml @ 125 mls/hr Q24H IVPB ; Start 12/21/18 at 16:00 Nicotine (Nicoderm 21 Mg/ 24hr) 1 patch DAILY TRANSDERM Last administered on 12/21/18 09:39; Admin Dose 1 PATCH; Start 12/21/18 at 09:00 Promethazine HCl/ Codeine (Phenergan/ Codeine) 5 ml Q4H PRN PO COUGH Last administered on 12/21/18 09:43; Admin Dose 5 ML; Start 12/21/18 at 09:00 TUNG WRIGHT MD Dec 21, 2018 11:50
[2018-12-21] MEDS: LIDOCAINE 5% PATCH TD SCH (12:22)
[2018-12-21] MEDS: FUROSEMIDE 20 MG INJ IV SCH ×2 (12:23→17:58)
--- NOTE | 2018-12-21 13:27 | NUR ---
ICU WOUND CARE ROUNDS RECOMMENDATIONS: 1. OFFLOADING: - Turning and repositioning q 2 hours - Sacrococcyx: Cover with foam border dressing for prophylactic protection. Change foam dressing every 3 days and as needed. Assess skin under dressing every shift. - Heel Protectors - Off-load with pillows - bill hiker related areas of concern: - Oxygen related device (Nasal cannula with Earmates for protection) Rounding with Charge nurse, Angelita. Recommendations given to RN. Marika Tejeda, BSN RN CWOCN
--- NOTE | 2018-12-21 15:36 | RADRPT ---
Echocardiogram Report Patient Name: Rashel FRANKLINnt ID: [id number] : 1940 (78y 7m)Study Date: 12/21/2018 8:14:29 AM Gender: MAccession #: [id number] Tech: PA Location: Ref.Physician: TIM DONNELLY Height(Cm): BSA: Weight(Kg): Quality: GoodAccount #: Procedures: Echocardiographic Report: Transthoracic echocardiogram with complete 2D, M-Mode, and doppler examination. Indications: Syncope. Measurements: 2D/M Mode Doppler Measurement Value Normal Range Measurement Value Normal Range LVIDd 2D 3.9 [ 4.2 - 5.8 ] cm JULEE VTI 1.5 [ 2.0 - 4.0 ] cm2 LVIDs 2D 2.5 [ 2.5 - 4.0 ] cm AV Mean Adrian 1.4 [ 70.0 - 90.0 ] cm/sec LVPWd 2D 1.1 [ 0.6 - 1.0 ] cm AV Mean PG 8.0 [ 2.0 - 4.0 ] mmHg IVSd 2D 1.0 [ 0.6 - 1.0 ] cm AV VTI 41.0 cm AoR Diam 2D 3.0 [ 2.6 - 3.4 ] cm LVOT Mean Adrian 0.7 [ 60.0 - 80.0 ] cm/sec EDV 2D 64.3 [ 62.0 - 150.0 ] ml LVOT Mean PG 2.0 [ 1.0 - 3.0 ] mmHg ESV 2D 21.7 [ 21.0 - 61.0 ] ml LVOT Peak Adrian 1.0 [ 70.0 - 110.0 ] cm/sec EF 2D 66.3 [ 52.0 - 72.0 ] percent LVOT Peak PG 4.0 [ 2.0 - 6.0 ] mmHg LA Dimen 2D 2.6 [ 3.0 - 4.0 ] cm LVOT VTI 22.3 [ 20.0 - 30.0 ] cm LVOT Diam 1.9 [ 2.3 - 2.9 ] cm MV E Peak Adrian 0.8 [ 60.0 - 130.0 ] cm/sec MV A Peak Adrian 1.0 [ 100.0 - 120.0 ] cm/sec MV E/A 0.8 [ 0.8 - 1.5 ] ratio MV Decel Time 218 [ 104 - 258 ] msec Lat E` Adrian 0.1 [ 10.0 - 15.0 ] cm/sec Lateral E/E` 12.0 [ 1.0 - 2.0 ] ratio MV E/A 0.8 [ 0.8 - 1.5 ] ratio TR Peak Adrian 2.4 [ 100.0 - 280.0 ] cm/sec TR Peak PG 22.0 mmHg RVSP 32.0 [ 10.0 - 36.0 ] mmHg RA Pressure 10.0 mmHg Findings: Left Ventricle: Normal left ventricular systolic function. Normal left ventricular cavity size. Mild concentric left ventricular hypertrophy. Ejection fraction is visually estimated at 65 %. Tissue Doppler/Mitral Doppler indices are consistent with impaired relaxation (Stage I diastolic dysfunction). Right Ventricle: Normal right ventricular size. Normal right ventricular systolic function. Left Atrium: The left atrium is normal in size. Right Atrium: The right atrium is normal in size. Mitral Valve: Mitral valve leaflets appear mildly thickened. Mild mitral annular calcification. Trace mitral regurgitation. Aortic Valve: Aortic valve Max velocity 2.04 m/sec. Max PG 17.00 mmHg. Mean PG 8.00 mmHg. Aortic sclerosis without significant stenosis. Trace aortic valve regurgitation. Tricuspid Valve: Normal appearance of the tricuspid valve. Estimated peak PA systolic pressure 32 mmHg. There is trace tricuspid regurgitation. Pulmonic Valve: Normal pulmonic valve appearance. Pericardium: Normal pericardium with no significant pericardial effusion. Aorta: Normal aortic root. IVC: Normal size and no respiratory collapse consistent with elevated right atrial pressure. Conclusions: Normal left ventricular systolic function. Normal left ventricular cavity size. Mild concentric left ventricular hypertrophy. Ejection fraction is visually estimated at 65 %. Tissue Doppler/Mitral Doppler indices are consistent with impaired relaxation (Stage I diastolic dysfunction). Mitral valve leaflets appear mildly thickened. Mild mitral annular calcification. Trace mitral regurgitation. Aortic valve Max velocity 2.04 m/sec. Max PG 17.00 mmHg. Mean PG 8.00 mmHg. Aortic sclerosis without significant stenosis. Trace aortic valve regurgitation. Normal appearance of the tricuspid valve. Estimated peak PA systolic pressure 32 mmHg. There is trace tricuspid regurgitation. Normal pericardium with no significant pericardial effusion. Electronically Signed By: Karlos Potts 2018-12-21 15:34:55 PST
[2018-12-21] MEDS ORDERED: VANCOMYCIN 750 MG (PMX) 250 ML IVPB SCH (16:00)
--- NOTE | 2018-12-21 18:27 | NUR ---
Received report from [facility]. Pt to transfer to room 2260. Plan to move to room 2267 when clean due to history of falls
--- NOTE | 2018-12-21 18:39 | NUR ---
TRANSFER NOTE: Report given to Adelina LEE on 2E. Pt is Romansh speaking only. A&Ox4, DUENAS, Lung rhonchi with wet sounding cough, but pt tries not to cough because of right rib/flank pain from fall a few weeks ago. Lidocaine patch placed to right flank area. Medicated q4h prn with [facility] & phenergan syrup. O2 sats 95-97% on 2L NC. Voiding in the urinal. Tolerating diet. Continue current POC.
--- NOTE | 2018-12-21 20:30 | NUR ---
Patient arrived to unit via bed at 1900. Family at bedside. Patient on 2L of oxygen via nasal cannula due to episodes of desaturation when coughing. Ronchi and crackles noted upon auscultation to bilateral upper and lower lobes. Patient states of intermittent productive cough of scant amount of sputum. Unable to assess; will continue to monitor. Patient verbalizes abdominal discomfort due to no BM since 12/10/18. Bowel sounds active. Patient complains of tenderness to RLL upon touch. Educated patient and family on the mechanism of action behind the ordered stool softeners and laxatives. Family stated, "he has tried the Miralax already... is there something we else we can give him?" Educated family to have patient to try Miralax first for tonight and further steps will be taken if no improvement is noted. Family and patient verbalized understanding. No skin breakdown noted upon assessment. Patient with BP of 173/82, HR of 121, and complaints of abdominal pain. Administered [place]; patient denied pain thereafter. BP and HR WNL post-administration of [place]. Educated patient on the importance to call for assistance for safety purposes and to turn every 2 hours for wound prevention. Oriented patient to room, call light, and bed functions. Family and patient verbalized understanding throughout teaching. Safety precautions and hourly rounding currently in place at this time.
[2018-12-21] MEDS: ATORVASTATIN 20 MG TAB PO SCH (20:37)
[2018-12-21] MEDS: EZETIMIBE 10 MG TAB PO SCH (21:56)
[2018-12-22 02:04] VITALS: BP 150/81; PULSE 95; RESP 18
[2018-12-22] MEDS: LEVALBUTEROL (NEB) 1.25 MG/0.5 ML AMP HHN SCH ×4 (02:43→19:30)
[2018-12-22] MEDS: HYDROCODONE/APAP (5/325) TAB PO PRN ×3 (04:03→13:43)
[2018-12-22] MEDS: FUROSEMIDE 20 MG INJ IV SCH (06:06)
--- NOTE | 2018-12-22 06:50 | NUR ---
Patient in room asleep with no signs of distress. Vital signs somewhat stable this shift. Patient complaining of abdominal pain this shift; Administered [place] x2. Patient denied pain thereafter. No coughing episodes noted this shift. Patient currently off oxygen due to adequate oxygen saturation. No BM noted this shift. No acute events noted this shift. All needs met and medications administered per MD order. Patient turned every 2 hours and OOB this shift. Safety precautions and hourly rounding currently in place until change of shift.
--- NOTE | 2018-12-22 07:43 | NUR ---
Patient bp 185/56, HR 100. C/o of headache 06/18. No blood pressure medication scheduled or prn. Informed MD, waiting for further instructions and will continue to monitor patient. Addendum: 12/22/18 at 0857 by KETURAH CHRISTOPHER RN Gave patient Mg 5 to address pain and reassessed pain and blood pressure after. Pain 12/19 and BP 157/77, HR 80.
[2018-12-22 08:00] VITALS: BP 185/86; PULSE 100; RESP 20
--- NOTE | 2018-12-22 08:55 | NUR ---
Patient's daughter called to see if patient had bowel movement after receiving colace and miralax from previous shift since he has been c/o constipation since he has been taking the [place]. Patient has not had a bowel movement at this time and family is requesting something stronger. MD notified and waiting for further orders.
[2018-12-22] MEDS: BUDESONIDE (NEB) 0.5MG/2ML AMP HHN SCH ×2 (09:00→19:30)
[2018-12-22] MEDS: IPRATROPIUM (NEB) 0.5 MG/2.5 ML AMP HHN SCH ×3 (09:02→19:30)
[2018-12-22] MEDS: CEFEPIME 1GM/50 ML (PMX) 50 ML IVPB SCH ×2 (09:56→20:58)
[2018-12-22] MEDS: NICOTINE (21 MG/24 HR) PATCH TRANSDERM SCH (09:56)
[2018-12-22] MEDS: FERROUS SULFATE (EC) 325 MG TAB PO SCH (09:56)
[2018-12-22] MEDS: CLOPIDOGREL 75 MG TAB PO SCH (09:57)
[2018-12-22] MEDS: DOCUSATE SODIUM 100 MG CAP PO SCH ×2 (09:57→20:59)
[2018-12-22] MEDS: CREON (24K-76K-120K) 1 CAP PO SCH ×3 (09:57→17:35)
[2018-12-22] MEDS: PREGABALIN 75 MG CAP PO SCH (09:57)
[2018-12-22] MEDS: FOLIC ACID 1 MG TAB PO SCH (09:57)
[2018-12-22] MEDS ORDERED: KETOROLAC 15 MG INJ IV STA (11:41)
--- NOTE | 2018-12-22 12:05 | PN ---
Date/Time of Note Date/Time of Note DATE: 12/22/18 TIME: 12:01 Assessment/Plan VTE Prophylaxis Risk score (from Nsg)>0 risk: 5 SCD applied (from Ns): Yes SCD contraindicated: patient refusal Pharmacological prophylaxis: heparin Lines/Catheters IV Catheter Type (from Nrsg): Saline Lock Urinary Cath still in place: No Assessment/Plan Hospital Course 78 yo male with ho COPD, PAD/CAD who suffered mechanical fall leading to rib trauma who presents with rib pain and found to have pneuomonia. Rib pain disabling and causing splinting which I believe has led to his pulmonic process Multifocal pneumonia - Suspect this is related to splingintg from rib apin 0- dc vanco. continue IV cefepime. Can dc tomorrow no PO abx Acute diastolic CHF: - Appears euvolvemic now. Will hold further lasix Rib pain: - Severe pain with cough and brething. No fractures on CT but this is affecting his ventilation and likely causing his pneumonia. Pain control. Have added li doderm patch. Will give a dose of toradol today with care given renal dysfunction COPD/emphysema: - not in an exacerbation now. Stable. Maintenance BDs and inhaled steroids CKD II: -Stable Constipation -Secondary to patient taking [place] and [place], added Colace and MiraLAX as needed. Enema. Discontinue PO iron for now Peripheral vascular disease -Continue Plavix, not on baby aspirin Hypertension: - Home meds Dyslipidemia -Continue home meds Disposition - Can go home when he feels up to it. Will need pain control and PO abx Result Diagram: 12/22/18 0650 12/22/18 0650 Results 24hrs Laboratory Tests Test 12/22/18 06:50 White Blood Count 11.4 H Red Blood Count 4.23 L Hemoglobin 11.3 L Hematocrit 34.2 L Mean Corpuscular Volume 80.9 L Mean Corpuscular Hemoglobin 26.7 L Mean Corpuscular Hemoglobin Concent 33.0 Red Cell Distribution Width 15.8 H Platelet Count 260 Mean Platelet Volume 11.4 H Immature Granulocytes % 1.300 H Neutrophils % 75.1 Lymphocytes % 12.8 L Monocytes % 8.2 Eosinophils % 2.1 Basophils % 0.5 Nucleated Red Blood Cells % 0.0 Immature Granulocytes # 0.150 H Neutrophils # 8.6 H Lymphocytes # 1.5 Monocytes # 0.9 Eosinophils # 0.2 Basophils # 0.1 Nucleated Red Blood Cells # 0.0 Sodium Level 137 Potassium Level 3.9 Chloride Level 101 Carbon Dioxide Level 26 Anion Gap 10 # Blood Urea Nitrogen 25 H Creatinine 1.52 H Est Glomerular Filtrat Rate mL/min Glucose Level 156 Calcium Level 9.3 Subjective 24 Hr Interval Summary Free Text/Dictation TTE with normal EF, mild diastolic disfunction Continues to complain of disabling rib pain. Very severe pain with coughing. Splints. Does not have shortness of breath aside from rib pain. Also feels co nstipated Exam/Review of Systems Exam Vitals Vital Signs Date Temp Pulse Resp B/P (MAP) Pulse Ox O2 O2 Flow FiO2 Time Delivery Rate 12/22/18 94 18 94 21 09:12 12/22/18 98.6 185/86 08:00 (119) 12/21/18 Nasal 2.0 20:30 Cannula Intake and Output 12/21/18 12/21/18 12/22/18 1515:00 23:00 07:00 IntakeIntake Total 875 ml 475 ml OutputOutput Total 650 ml 575 ml BalanceBalance 225 ml -100 ml Exam Breathing comfortably on RA No wheezing but does have diffuse rhonchi b/l Pain in R side ribs RRR, flat neck veins Abodmen soft nt nd Ext without edema Results Results 24hrs Laboratory Tests Test 12/22/18 06:50 White Blood Count 11.4 H Red Blood Count 4.23 L Hemoglobin 11.3 L Hematocrit 34.2 L Mean Corpuscular Volume 80.9 L Mean Corpuscular Hemoglobin 26.7 L Mean Corpuscular Hemoglobin Concent 33.0 Red Cell Distribution Width 15.8 H Platelet Count 260 Mean Platelet Volume 11.4 H Immature Granulocytes % 1.300 H Neutrophils % 75.1 Lymphocytes % 12.8 L Monocytes % 8.2 Eosinophils % 2.1 Basophils % 0.5 Nucleated Red Blood Cells % 0.0 Immature Granulocytes # 0.150 H Neutrophils # 8.6 H Lymphocytes # 1.5 Monocytes # 0.9 Eosinophils # 0.2 Basophils # 0.1 Nucleated Red Blood Cells # 0.0 Sodium Level 137 Potassium Level 3.9 Chloride Level 101 Carbon Dioxide Level 26 Anion Gap 10 # Blood Urea Nitrogen 25 H Creatinine 1.52 H Est Glomerular Filtrat Rate mL/min Glucose Level 156 Calcium Level 9.3 Medications Medication Current Medications Cefepime HCl 50 ml @ 100 mls/hr Q12 IVPB Last administered on 12/22/18 09:56; Admin Dose 100 MLS/HR; Start 12/20/18 at 21:00 Vancomycin HCl (Vanco Iv Per Pharmacy) VANCOMYCIN PER PHARMACY PER PROTOCOL XX ; Start 12/20/18 at 21:00 Levalbuterol (Xopenex Neb) 1.25 mg Q4H RESP THERAPY PRN HHN wheezing; Start 12/20/18 at 21:00 Levalbuterol (Xopenex Neb) 1.25 mg Q6H RESP THERAPY HHN Last administered on 12/22/18at 09:01; Admin Dose 1.25 MG; Start 12/21/18 at 02:00 Ipratropium [place] (Atrovent 0.02% (Neb)) 0.5 mg Q2H RESP THERAPY PRN HHN SHORTNESS OF BREATH Last administered on 12/21/18at 03:06; Admin Dose 0.5 MG; Start 12/20/18 at 21:00 Ipratropium [place] (Atrovent 0.02% (Neb)) 0.5 mg Q6HWA RESP THERAPY HHN Last administered on 12/22/18at 09:02; Admin Dose 0.5 MG; Start 12/21/18 at 08:00 Budesonide (Pulmicort (Neb)) 0.5 mg BID RESP THERAPY HHN Last administered on 12/22/18at 09:00; Admin Dose 0.5 MG; Start 12/21/18 at 09:00 IV Flush (NS 3 ml) 3 ml PER PROTOCOL IV ; Start 12/20/18 at 21:00 Ondansetron HCl (Zofran Inj) 4 mg Q6H PRN IV NAUSEA/VOMITING Last administered on 12/21/18at 06:41; Admin Dose 4 MG; Start 12/20/18 at 21:00 Acetaminophen (Tylenol Tab) 650 mg Q6H PRN PO .PAIN 1-3 OR TEMP; Start 12/20/18 at 21:00 Labetalol HCl (Labetalol) 10 mg Q4H PRN IV sbp >160; Start 12/20/18 at 21:00 Clopidogrel Bisulfate (plaVIX) 75 mg DAILY PO Last administered on 12/22/18at 09:57; Admin Dose 75 MG; Start 12/21/18 at 09:00 EZETIMIBE (Zetia) 10 mg HS PO Last administered on 12/21/18 21:56; Admin Dose 10 MG; Start 12/21/18 at 21:00 Ferrous Sulfate (Ferrous Sulfate (Ec)) 325 mg BID PO Last administered on 12/22/18 09:56; Admin Dose 325 MG; Start 12/21/18 at 09:00 Folic Acid (Folic Acid) 1 mg DAILY PO Last administered on 12/22/18 09:57; Admin Dose 1 MG; Start 12/21/18 at 09:00 Amylase/Lipase/ Protease (Creon ([id number])) 1 cap WITH MEALS PO Last administered on 12/22/18 09:57; Admin Dose 1 CAP; Start 12/21/18 at 07:35 Pregabalin (Lyrica) 75 mg DAILY PO Last administered on 12/22/18 09:57; Admin Dose 75 MG; Start 12/21/18 at 09:00 Atorvastatin Calcium (Lipitor) 20 mg QHS PO Last administered on 12/21/18 20:37; Admin Dose 20 MG; Start 12/21/18 at 21:00 Docusate Sodium (Colace) 100 mg BID PO Last administered on 12/22/18 09:57; Admin Dose 100 MG; Start 12/20/18 at 21:30 Polyethylene Glycol (Miralax) 17 gm DAILY PRN PO CONSTIPATION Last administered on 12/21/18 20:37; Admin Dose 17 GM; Start 12/20/18 at 21:30 Vancomycin/Sodium Chloride 250 ml @ 125 mls/hr Q24H IVPB Last administered on 12/21/18 16:40; Admin Dose 125 MLS/HR; Start 12/21/18 at 16:00 Nicotine (Nicoderm 21 Mg/ 24hr) 1 patch DAILY TRANSDERM Last administered on 12/22/18 09:56; Admin Dose 1 PATCH; Start 12/21/18 at 09:00 Promethazine HCl/ Codeine (Phenergan/ Codeine) 5 ml Q4H PRN PO COUGH Last administered on 12/21/18 16:39; Admin Dose 5 ML; Start 12/21/18 at 09:00 Lidocaine (Lidoderm) 1 patch DAILY TD Last administered on 12/21/18at 12:22; Admin Dose 1 PATCH; Start 12/21/18 at 12:00 Acetaminophen/ Hydrocodone Bitart ([place] (5/325)) 1 tab Q4H PRN PO MODERATE PAIN LEVEL 4-6 Last administered on 12/22/18 07:50; Admin Dose 1 TAB; Start 12/21/18 at 13:00 TUNG WRIGHT MD Dec 22, 2018 12:05
[2018-12-22] MEDS: LIDOCAINE 5% PATCH TD SCH (13:35)
[2018-12-22 14:00] VITALS: BP 153/63; PULSE 111; RESP 18
[2018-12-22] MEDS: ATORVASTATIN 20 MG TAB PO SCH (20:58)
[2018-12-22] MEDS: EZETIMIBE 10 MG TAB PO SCH (20:58)
[2018-12-22 21:03] VITALS: BP 135/79; PULSE 100; RESP 16
[2018-12-23] MEDS: LEVALBUTEROL (NEB) 1.25 MG/0.5 ML AMP HHN SCH ×4 (00:43→20:38)
[2018-12-23 02:09] VITALS: BP 139/77; PULSE 102; RESP 16
--- NOTE | 2018-12-23 03:21 | NUR ---
nurses notes: patient alert and oriented x3.ambulates with steady gait-standby assist.no respiratory distress noted.denies any pain.call light within reach instructed to call for assistance verbalized understanding.slept at intervals.needs attended.bed alarm on.bed in lowest position.no acute changes overnight.monitored.
[2018-12-23] MEDS: IPRATROPIUM (NEB) 0.5 MG/2.5 ML AMP HHN SCH ×3 (07:35→20:38)
[2018-12-23] MEDS: BUDESONIDE (NEB) 0.5MG/2ML AMP HHN SCH ×2 (07:48→20:40)
[2018-12-23 07:50] VITALS: BP 150/84; PULSE 93; RESP 18
[2018-12-23] MEDS: HYDROCODONE/APAP (5/325) TAB PO PRN (09:46)
[2018-12-23] MEDS: POLYETHYLENE GLYCOL 17 GM PACKET PO PRN (09:47)
[2018-12-23] MEDS: PREGABALIN 75 MG CAP PO SCH (09:47)
[2018-12-23] MEDS: DOCUSATE SODIUM 100 MG CAP PO SCH ×2 (09:47→21:58)
[2018-12-23] MEDS: LIDOCAINE 5% PATCH TD SCH (09:47)
[2018-12-23] MEDS: FOLIC ACID 1 MG TAB PO SCH (09:47)
[2018-12-23] MEDS: CREON (24K-76K-120K) 1 CAP PO SCH ×3 (09:47→17:30)
[2018-12-23] MEDS: CLOPIDOGREL 75 MG TAB PO SCH (09:47)
[2018-12-23] MEDS: NICOTINE (21 MG/24 HR) PATCH TRANSDERM SCH (09:47)
[2018-12-23] MEDS: CEFEPIME 1GM/50 ML (PMX) 50 ML IVPB SCH ×2 (09:48→21:59)
--- NOTE | 2018-12-23 10:48 | NUR ---
Dr. Martinez at bedside with patient. States he is patients primary doctor and was not informed patient was in hospital. He is ordering attending be changed to him per family request and being patients primary doctor. Notified Dr. Ewing of Dr. Martinez's order and that he would like to speak with him. Waiting for response. Charge Nurse aware. Addendum: 12/23/18 at 1109 by KETURAH CHRISTOPHER RN Dr. Ewing aware and ordered change of attending to Dr. Martinez and spoke to Dr. Martinez regarding patient care. Admitting aware of order.
--- NOTE | 2018-12-23 11:48 | HP ---
Date/Time of Note Date/Time of Note DATE: 12/23/18 TIME: 11:14 Assessment/Plan VTE Prophylaxis Risk score (from Ns)>0 risk: 4 SCD applied (from Ns): Yes Pharmacological prophylaxis: LMWH, other (Patient was encouraged to get up and walk.) Pharm contraindication: low risk/ambulating, renal impairment Lines/Catheters IV Catheter Type (from Nrs): Saline Lock Central line still needed: No Urinary Cath still in place: No Reason Cath still needed: urinary retention, other (indicate) (Dysuria with nocturia x2-3.) Assessment/Plan Assessment/Plan COPD, PAD/CAD who suffered mechanical fall leading to rib trauma who presents with rib pain and found to have pneuomnia and likely CHF 1.severe right sided inferior lateral chest pain possible rib fracture reevaluate the CT .rib pain: - No fractures on CT. Pain control. Continue Lidoderm patch 2.Multifocal pneumonia-on CT - Suspect this is related to splingintg from rib apin Continue antibiotics-IV antibiotic Intensify-Nebulizers 3.Acute diastolic CHF: - Lasix - TTE pending 4.COPD exacerbation -Very mild at this time likely due to pneumonia -Nebulizers -Needs to stop smoking-5 days no cigarettes. We will add a small dose of Lidoderm patch 7 mg. Daily. -Able to tolerate room air 5.Acute kidney injury versus chronic kidney disease -May be secondary to volume depletion as patient has not been eating or drinking well in the past few days, very mild creatinine elevation, will hydrate and request a nephrology consult 6.Questionable syncope-actually the patient did not fell down although he described this as a loss of consciousness. But definitely he lost some part of his awareness about his surroundings about himself that he cannot recall what happened but again no episode of fall. -Patient doing okay however will get CT of the head to assess -Syncope was first well was on the fifth to second and was on the seventh according to him he had 2 other episodes while going to [facility] second time and another episode while coming to the [facility] last witnessed approximately 3 days ago, no episodes since in the hospital. -Ultrasound carotid as well as echocardiogram noted. 7.Constipation -Secondary to patient taking [place], added Colace and MiraLAX as needed-improving 8.Peripheral vascular disease-No evidence for hemodynamically significant stenosis in the bilateral internal carotid arteries- by validated velocity measurements. -Continue Plavix, not on baby aspirin 9.Hypertension-now normotensive; next-hold losartan and HIDA chlorothiazide as may make acute kidney injury worse, treat as needed 10.Dyslipidemia -Continue home meds 11. Nicotine addiction 12. Diverticulosis no diverticulitis. 13. Near syncopal episodes 14. Hypoxemia currently on home oxygen pulmonary consult will be requested- 15. Pericardial effusion on the CT of the chest 16. Anemia of chronic disease- anemia workup 17. Gastroesophageal reflux disease with history of gastritis. 18. Trace mitral and tricuspid insufficiency with aortic stenosis. 19. Pulmonary hypertension with estimated pulmonary artery pressure 32 20. Chronic sinusitis 21. Anxiety disorder with memory impairment-mild cerebral atrophy on the CT of the head 22. Leukocytosis improving 23. Incomplete data we will get more information from [facility] Disposition -Admit patient for multifocal pneumonia and mild COPD exacerbation Result Diagram: Result Diagram: 12/22/1850 12/22/1850 HPI/ROS Admit Date/Time Admit Date/Time December 20, 2018 date of admission; taking over care of the patient as a primary care physician since December 23, 2018. I reviewed the old chart and had a conversation with attending physician. She was taken from patient but conversation with the and the relative who was in the room. Actually the patient had a episode of accidental heat to the edge of a table at home on December 14, 2018 which was so strong that he described it as "I lost consciousness". More detailed questioning revealed that he did not fell down but there is a moment when he cannot recall what happened because the patient the pain was awfully strong. The patient was unable to complete deeply and any movement was severely exacerbating the pain. Time of the sixth dictation I do not have the data from [facility] where he was transferred laboratory workup was done and CT of the chest also was done and sent home on [place] exact dose unknown. According to him [place] helped him to control the pain but after 2 days whenever he was coughing the pain is becoming so strong that he describes it again as I lost consciousness. Again he denied any episode of fall he denies hitting his head or any place. And his pain was localized in the right side of inferior chest posteriorly laterally with severe exacerbation while she was coughing. After worsening the condition he was second time transferred to the [facility] emergency room who was evaluated and sent back home on pain medications. Condition continued to worsen his shortness of breath was getting worse his movements are exacerbating the pain also was having of having chills which she describes as feeling cold whenever he was getting out of the bed. According to him he had a third episode of loss of consciousness when 4 some period of time seconds minutes he does not remember what happened with him and basically trigger of the condition was the pain in the right side of her chest area laterally. The emergency room of [facility] was full patient was transferred to the [facility] where patient waited for almost 10 hours by being in the terrible pain and finally was admitted on the second CT was done. Reviewed all data the patient had a WBC of 16,000 along with multifocal pneumonia diagnosis by the CT report on clinically with evaluation and started on antibiotics and hydration for dehydration with elevated physician #1 creatinine level. Patient continues to have a sputum production he is protecting his right inferior side of the chest mainly from excessive movements while coughing and when he is little bit late the pain is reaching the 20 degree of 10/10. Continues to wheeze. He states that he did did not smoke for last 5 days which is a record for him. Somehow it was not informed that he is here in 2 days family asked me to take over the care they already called to radiology department asked the radiologist to reevaluate for possible rib fractures T9-T10 possible T11 which by my evaluation of the CT there is a suspicion for fracture without dislocation. Definitely patient does not have a pneumothorax and at the at this stage of a treatment plan overall condition is improved particularly pain control and pneumonia related symptoms will continue current treatment putting main attention on source of her pain and possible intercostal nerve block while in the hospital. Actually he is unable to move without help he is unable to get up with due to the severe pain but clinically he has high suspicion for a refracture on the right side T10-T11 possible T9. ROS Constitutional: improved, fatigue, nausea, poor po, weight change; No no complaints, No chills, No diaphoresis, No disoriented, No febrile, No other Eyes: discharge, redness; No no complaints, No pain, No visual change, No other ENT: congestion, sore throat; No no complaints, No bleeding, No pain, No discharge, No dysphagia, No other Respiratory: cough, pleuritic pain, shortness of breath, sputum, wheezing, other (Denies hemoptysis.); No no complaints, No pain Cardiovascular: chest pain, lightheadedness, orthopenea, palpitations, par oxysmal nocturnal dyspnea; No no complaints, No edema, No other Gastrointestinal: constipation (After taking the [place] but now he is having a bowel movement after taking MiraLAX and Colace.), decreased appetite; No no complaints, No pain, No blood, No diarrhea, No flatus, No nausea, No passing stool, No vomiting, No other Genitourinary: dysuria, flank pain; No no complaints, No bleeding, No discharge, No hematuria, No other Musculoskeletal: back pain, bone/joint pain, neck pain Skin: pruritis, rash; No no complaints, No bruising, No erythema, No laceration, No skin lesions, No other Neurologic: dizziness, headache; No no complaints, No confusion, No focal-weakness, No syncope, No seizure, No other Endocrine: dry skin, weight change (He lost about 2 pounds during the last week mainly by not eating.); No no complaints, No polyuria, No polydypsia, No temp intolerance, No other Lymphatic: No no complaints, No adenopathy, No tender nodes, No lymphadema, No other Psychological: anxiety, depression, other (Memory impairment with recurrent episodes of having most probably near syncopal episode which he describes as loss of consciousness.); No no complaints, No nl mood/affect, No confusion, No suicidal Immunologic: No no complaints, No immunodeficiency, No pruritis, No rhinitis, No urticaria, No other PMH/Family/Social Past Medical History Medical History: angina, colitis, congestive heart failure, coronary artery disease, diverticulitis, GERD, GI bleed, high cholesterol, renal disease, urinary tract infection Medications Current Medications Cefepime HCl 50 ml @ 100 mls/hr Q12 IVPB Last administered on 12/23/18at 09:48; Admin Dose 100 MLS/HR; Start 12/20/18 at 21:00 Levalbuterol (Xopenex Neb) 1.25 mg Q4H RESP THERAPY PRN HHN wheezing; Start 12/20/18 at 21:00 Levalbuterol (Xopenex Neb) 1.25 mg Q6H RESP THERAPY HHN Last administered on 12/23/18 07:35; Admin Dose 1.25 MG; Start 12/21/18 at 02:00 Ipratropium [place] (Atrovent 0.02% (Neb)) 0.5 mg Q2H RESP THERAPY PRN HHN S HORTNESS OF BREATH Last administered on 12/21/18 03:06; Admin Dose 0.5 MG; Start 12/20/18 at 21:00 Ipratropium [place] (Atrovent 0.02% (Neb)) 0.5 mg Q6HWA RESP THERAPY HHN Last administered on 12/23/18 07:35; Admin Dose 0.5 MG; Start 12/21/18 at 08:00 Budesonide (Pulmicort (Neb)) 0.5 mg BID RESP THERAPY HHN Last administered on 12/23/18 07:48; Admin Dose 0.5 MG; Start 12/21/18 at 09:00 IV Flush (NS 3 ml) 3 ml PER PROTOCOL IV ; Start 12/20/18 at 21:00 Ondansetron HCl (Zofran Inj) 4 mg Q6H PRN IV NAUSEA/VOMITING Last administered on 12/21/18 06:41; Admin Dose 4 MG; Start 12/20/18 at 21:00 Acetaminophen (Tylenol Tab) 650 mg Q6H PRN PO .PAIN 1-3 OR TEMP; Start 12/20/18 at 21:00 Labetalol HCl (Labetalol) 10 mg Q4H PRN IV sbp >160; Start 12/20/18 at 21:00 Clopidogrel Bisulfate (plaVIX) 75 mg DAILY PO Last administered on 12/23/18 09:47; Admin Dose 75 MG; Start 12/21/18 at 09:00 EZETIMIBE (Zetia) 10 mg HS PO Last administered on 12/22/18 20:58; Admin Dose 10 MG; Start 12/21/18 at 21:00 Folic Acid (Folic Acid) 1 mg DAILY PO Last administered on 12/23/18 09:47; Admin Dose 1 MG; Start 12/21/18 at 09:00 Amylase/Lipase/ Protease (Creon ([id number])) 1 cap WITH MEALS PO Last administered on 12/23/18 09:47; Admin Dose 1 CAP; Start 12/21/18 at 07:35 Pregabalin (Lyrica) 75 mg DAILY PO Last administered on 12/23/18 09:47; Admin Dose 75 MG; Start 12/21/18 at 09:00 Atorvastatin Calcium (Lipitor) 20 mg QHS PO Last administered on 12/22/18 20:58; Admin Dose 20 MG; Start 12/21/18 at 21:00 Docusate Sodium (Colace) 100 mg BID PO Last administered on 12/23/18 09:47; Admin Dose 100 MG; Start 12/20/18 at 21:30 Polyethylene Glycol (Miralax) 17 gm DAILY PRN PO CONSTIPATION Last administered on 12/23/18 09:47; Admin Dose 17 GM; Start 12/20/18 at 21:30 Nicotine (Nicoderm 21 Mg/ 24hr) 1 patch DAILY TRANSDERM Last administered on 12/23/18 09:47; Admin Dose 1 PATCH; Start 12/21/18 at 09:00 Promethazine HCl/ Codeine (Phenergan/ Codeine) 5 ml Q4H PRN PO COUGH Last admi nistered on 12/21/18 16:39; Admin Dose 5 ML; Start 12/21/18 at 09:00 Lidocaine (Lidoderm) 1 patch DAILY TD Last administered on 12/23/18 09:47; Admin Dose 1 PATCH; Start 12/21/18 at 12:00 Acetaminophen/ Hydrocodone Bitart ([place] (5/325)) 1 tab Q4H PRN PO MODERATE PAIN LEVEL 4-6 Last administered on 12/23/18 09:46; Admin Dose 1 TAB; Start 12/21/18 at 13:00 Coded Allergies: No Known Allergy (Verified , 12/20/18) Family History Significant Family History: heart disease Social History Alcohol Use: rarely Smoking Status: Current every day smoker Drug Use: none Exam/Review of Systems Vital Signs Vitals Vital Signs Date Temp Pulse Resp B/P (MAP) Pulse Ox O2 O2 Flow FiO2 Time Delivery Rate 12/23/18 Nasal 2.0 09:05 Cannula 12/23/18 97.3 93 18 150/84 98 07:50 (106) 12/23/18 21 07:35 Intake and Output 12/22/18 12/22/18 12/23/18 1515:00 23:00 07:00 IntakeIntake Total 400 ml 350 ml BalanceBalance 400 ml 350 ml Exam Constitutional: alert, oriented, well developed, distress, frail, other (Difficulty to communicate secondary to hearing impairment and on and off holding the right side of her chest to alleviate the pain and help to prevent from exacerbation.); No non-verbal Psych: anxiety, depression; No no complaints, No nl mood/affect, No confusion, No suicidal, No other Head: normocephalic, atraumatic; No lacerations, No hematomas, No other Eyes: EOMI, nl lids, nl sclera (Erythematous conjunctiva.); No nl conjunctiva, No PERRL, No icteric, No fundi, disc, No other ENMT: nl nasal mucosa & septum, tympanic membranes (Sclerotic.); No nl external ears & nose, No nl lips & teeth, No mucosa pink and moist, No intubated, No other Neck: jvd, bruits, nuchal rigidity; No supple, No non-tender, No masses, No thyromegaly, No other Respiratory: congested cough, crackles/rales, diminished breath sounds, labored breathing, wheezing (Diffuse bilaterally right more than left lower lung zone more prominent than upper.) Cardiovascular: regular rate and rhythm, bruits, irregular rhythm, jugular venous distention (JVD), murmurs/extra sounds, systolic murmur; No nl pulses, No diastolic murmur, No edema, No gallop, No rub, No S3, No S4, No other Gastrointestinal: soft, nl liver, spleen, bowel sounds, rebound or guarding; No non-tender, No ascites, No distended, No firm, No hepatomegaly, No mass, No splenomegaly, No surgical scars, No tender, No other Genitourinary - Male: nl penis, nl scrotum, CVA tenderness (On the right side laterally without evidence of crepitation and no hematomas at the site of trauma which patient describes no focal changes no wounds no abrasions.); No discharge, No other Musculoskeletal: nl gait and stance, joint tenderness, muscle tone, muscle weakness (Severely decreased muscular tone and mass); No nl extremities to inspection, No range of motion, No spine non-tender, No swelling, No other Extremities: normal pulses, cyanosis, clubbing; No calf tenderness, No edema, No pitting pedal edema, No palpable cord, No tenderness, No other Neurological: WORM SORTER II-XII intact (Except cranial nerves VIII), nl mental status, numbness, other (Responds to questions with delay getting anxious easily); No nl speech, No nl strength, No confused, No DTR's symmetric, No focal weakness, No lethargic, No reflexes, No unresponsive Skin: nl turgor; No rash or lesions, No diaphoresis, No ecchymosis, No laceration, No puncture, No other Lymph: No nl lymph nodes, No enlarged, No nontender, No other SOFIA QUIROZ MD Dec 23, 2018 11:24
[2018-12-23] MEDS ORDERED: METHYLPREDNISOLONE 125 MG INJ IM ONE (12:00)
--- NOTE | 2018-12-23 12:10 | CONS ---
Consultation Date/Type/Reason Admit Date/Time 12/20/2018 Date of Consultation: Dec 23, 2018 Type of Consult NEPHROLOGY Reason for Consultation Hyponatremia Requesting Provider: SOFIA QUIROZ MD Date/Time of Note DATE: 12/23/18 TIME: 12:09 Past Medical History Medical History: angina, colitis, congestive heart failure, coronary artery disease, diverticulitis, GERD, GI bleed, high cholesterol, renal disease, uri nary tract infection Home Meds Reported Medications Salmeterol Xinaf-Fluticasone* (Advair*) 500/50 Diskus Inhaler, 1 INH INHALATION BID, #1 INHALER 12/20/18 Alendronate Sodium* (Fosamax*) 70 Mg Tablet, 70 MG PO Q 2 WEEK, #4 TAB 12/20/18 Ezetimibe* (Zetia*) 10 Mg Tablet, 10 MG PO HS, TAB 12/20/18 Losartan-Hydrochlorothiazide (Losartan-HCTZ) 100-25 Mg Tab, 1 TAB PO DAILY, TAB 12/20/18 Simvastatin* (Zocor*) 40 Mg Tablet, 40 MG PO QHS, #30 TAB 12/20/18 Folic Acid* (Folic Acid*) 1 Mg Tablet, 1 MG PO DAILY, TAB 12/20/18 Ergocalciferol (Vitamin D2) (VITAMIN D2) 50,000 Unit Capsule, 86245 UNIT PO Q 2 WEEK, CAP 12/20/18 Ferrous Sulfate* (Ferrous Sulfate*) 325 Mg Tabec, 325 MG PO BID, TAB 12/20/18 Clonidine Hcl* (Clonidine Hcl*) 0.1 Mg Tab, 0.1 MG PO BID PRN for NEEDED, TAB 12/20/18 [place]-3 Acid Ethyl Esters (Lovaza) 1 Gm Capsule, 2 GM PO BID, CAP 12/20/18 Pregabalin* (Lyrica*) 75 Mg Capsule, 75 MG PO DAILY, CAP 12/20/18 Aluesw-Amiacujm-Jzduzos* (Vane MONK* 24,000) 24,000 L-76,000-120,000 Unit Capsule.dr, 1 CAP PO WITH MEALS, CAP 12/20/18 Clopidogrel Bisulfate* (Clopidogrel Bisulfate*) 75 Mg Tablet, 75 MG PO DAILY, #3 0 TAB 12/20/18 Discontinued Reported Medications Alendronate Sodium* (Alendronate Sodium*) 40 Mg Tablet, 70 MG PO DAILY, TAB 05/16/14 Esomeprazole Mag Trihydrate (Nexium) 40 Mg Capsule.dr, 40 MG PO DAILY, CAP 05/16/14 Methimazole* (Methimazole*) 10 Mg Tablet, 10 MG PO BID, TAB 05/16/14 Losartan-Hydrochlorothiazide (Losartan-HCTZ) 100-25 Mg Tab, 1 TAB PO DAILY, TAB 05/16/14 Clopidogrel Bisulfate* (Clopidogrel Bisulfate*) 75 Mg Tablet, 75 MG PO DAILY, TAB 05/16/14 Olanzapine* (Olanzapine*) 7.5 Mg Tablet, 5 MG PO DAILY, TAB 05/16/14 Ezetimibe* (Zetia*) 10 Mg Tablet, 10 MG PO DAILY, TAB 05/16/14 Aspirin (Aspirin) 81 Mg Tablet, 81 MG PO DAILY 05/19/12 Medications Current Medications Cefepime HCl 50 ml @ 100 mls/hr Q12 IVPB Last administered on 12/23/18 09:48; Admin Dose 100 MLS/HR; Start 12/20/18 at 21:00 Levalbuterol (Xopenex Neb) 1.25 mg Q4H RESP THERAPY PRN HHN wheezing; Start 12/20/18 at 21:00 Levalbuterol (Xopenex Neb) 1.25 mg Q6H RESP THERAPY HHN Last administered on 12/23/18 07:35; Admin Dose 1.25 MG; Start 12/21/18 at 02:00 Ipratropium Benedict (Atrovent 0.02% (Neb)) 0.5 mg Q2H RESP THERAPY PRN HHN SHORTNESS OF BREATH Last administered on 12/21/18 03:06; Admin Dose 0.5 MG; Start 12/20/18 at 21:00 Ipratropium Benedict (Atrovent 0.02% (Neb)) 0.5 mg Q6HWA RESP THERAPY HHN Last administered on 12/23/18 07:35; Admin Dose 0.5 MG; Start 12/21/18 at 08:00 Budesonide (Pulmicort (Neb)) 0.5 mg BID RESP THERAPY HHN Last administered on 12/23/18 07:48; Admin Dose 0.5 MG; Start 12/21/18 at 09:00 IV Flush (NS 3 ml) 3 ml PER PROTOCOL IV ; Start 12/20/18 at 21:00 Ondansetron HCl (Zofran Inj) 4 mg Q6H PRN IV NAUSEA/VOMITING Last administered on 12/21/18 06:41; Admin Dose 4 MG; Start 12/20/18 at 21:00 Acetaminophen (Tylenol Tab) 650 mg Q6H PRN PO .PAIN 1-3 OR TEMP; Start 12/20/18 at 21:00 Labetalol HCl (Labetalol) 10 mg Q4H PRN IV sbp >160; Start 12/20/18 at 21:00 Clopidogrel Bisulfate (plaVIX) 75 mg DAILY PO Last administered on 12/23/18 09:47; Admin Dose 75 MG; Start 12/21/18 at 09:00 EZETIMIBE (Zetia) 10 mg HS PO Last administered on 12/22/18 20:58; Admin Dose 10 MG; Start 12/21/18 at 21:00 Folic Acid (Folic Acid) 1 mg DAILY PO Last administered on 12/23/18 09:47; Admin Dose 1 MG; Start 12/21/18 at 09:00 Amylase/Lipase/ Protease (Creon ([id number])) 1 cap WITH MEALS PO Last administered on 12/23/18 09:47; Admin Dose 1 CAP; Start 12/21/18 at 07:35 Pregabalin (Lyrica) 75 mg DAILY PO Last administered on 12/23/18 09:47; Admin Dose 75 MG; Start 12/21/18 at 09:00 Atorvastatin Calcium (Lipitor) 20 mg QHS PO Last administered on 12/22/18 20:58; Admin Dose 20 MG; Start 12/21/18 at 21:00 Docusate Sodium (Colace) 100 mg BID PO Last administered on 12/23/18 09:47; Admin Dose 100 MG; Start 12/20/18 at 21:30 Polyethylene Glycol (Miralax) 17 gm DAILY PRN PO CONSTIPATION Last administered on 12/23/18 09:47; Admin Dose 17 GM; Start 12/20/18 at 21:30 Promethazine HCl/ Codeine (Phenergan/ Codeine) 5 ml Q4H PRN PO COUGH Last administered on 2/12/19at 16:39; Admin Dose 5 ML; Start 12/21/18 at 09:00 Lidocaine (Lidoderm) 1 patch DAILY TD Last administered on 12/23/18at 09:47; Admin Dose 1 PATCH; Start 12/21/18 at 12:00 Acetaminophen/ Hydrocodone Bitart ([place] (5/325)) 1 tab Q4H PRN PO MODERATE PAIN LEVEL 4-6 Last administered on 12/23/18at 09:46; Admin Dose 1 TAB; Start 12/21/18 at 13:00 Nicotine (Nicoderm 14 Mg/ 24hr) 1 patch DAILY TRANSDERM ; Start 12/23/18 at 12:00; Status UNV Acetylcysteine (Mucomyst) 2 ml Q6H RESP THERAPY NEB ; Start 12/23/18 at 14:00; Status UNV Methylprednisolone Sodium Succinate (Solu-Medrol) 125 mg ONCE ONCE IM ; Start 12/23/18 at 12:00; Stop 12/23/18 at 12:01; Status UNV Methylprednisolone Sodium Succinate (Solu-Medrol) 60 mg ONCE ONCE IV ; Start 12/24/18 at 12:00; Stop 12/24/18 at 12:01; Status UNV Methylprednisolone Sodium Succinate (Solu-Medrol) 30 mg DAILY ONCE IV ; Start 12/24/18 at 09:00; Stop 12/24/18 at 09:01; Status UNV Allergies: Coded Allergies: No Known Allergy (Verified , 12/20/18) Social History Alcohol Use: rarely Smoking Status: Current every day smoker Drug Use: none Exam/Review of Systems Exam Vitals Vital Signs Date Temp Pulse Resp B/P (MAP) Pulse Ox O2 O2 Flow FiO2 Time Delivery Rate 12/23/18 Nasal 2.0 09:05 Cannula 12/23/18 97.3 93 18 150/84 98 07:50 (106) 12/23/18 21 07:35 Intake and Output 12/22/18 12/22/18 12/23/18 1515:00 23:00 07:00 IntakeIntake Total 400 ml 350 ml BalanceBalance 400 ml 350 ml Results Result Diagram: 12/22/18 0650 12/22/18 0650 Medications Medication Current Medications Cefepime HCl 50 ml @ 100 mls/hr Q12 IVPB Last administered on 12/23/18at 09:48; Admin Dose 100 MLS/HR; Start 12/20/18 at 21:00 Levalbuterol (Xopenex Neb) 1.25 mg Q4H RESP THERAPY PRN HHN wheezing; Start 12/20/18 at 21:00 Levalbuterol (Xopenex Neb) 1.25 mg Q6H RESP THERAPY HHN Last administered on 12/23/18at 07:35; Admin Dose 1.25 MG; Start 12/21/18 at 02:00 Ipratropium Benedict (Atrovent 0.02% (Neb)) 0.5 mg Q2H RESP THERAPY PRN HHN SHORTNESS OF BREATH Last administered on 12/21/18at 03:06; Admin Dose 0.5 MG; Start 12/20/18 at 21:00 Ipratropium Benedict (Atrovent 0.02% (Neb)) 0.5 mg Q6HWA RESP THERAPY HHN Last administered on 12/23/18at 07:35; Admin Dose 0.5 MG; Start 12/21/18 at 08:00 Budesonide (Pulmicort (Neb)) 0.5 mg BID RESP THERAPY HHN Last administered on 12/23/18at 07:48; Admin Dose 0.5 MG; Start 12/21/18 at 09:00 IV Flush (NS 3 ml) 3 ml PER PROTOCOL IV ; Start 12/20/18 at 21:00 Ondansetron HCl (Zofran Inj) 4 mg Q6H PRN IV NAUSEA/VOMITING Last administered on 12/21/18at 06:41; Admin Dose 4 MG; Start 12/20/18 at 21:00 Acetaminophen (Tylenol Tab) 650 mg Q6H PRN PO .PAIN 1-3 OR TEMP; Start 12/20/18 at 21:00 Labetalol HCl (Labetalol) 10 mg Q4H PRN IV sbp >160; Start 12/20/18 at 21:00 Clopidogrel Bisulfate (plaVIX) 75 mg DAILY PO Last administered on 12/23/18at 09:47; Admin Dose 75 MG; Start 12/21/18 at 09:00 EZETIMIBE (Zetia) 10 mg HS PO Last administered on 12/22/18at 20:58; Admin Dose 10 MG; Start 12/21/18 at 21:00 Folic Acid (Folic Acid) 1 mg DAILY PO Last administered on 12/23/18 09:47; Admin Dose 1 MG; Start 12/21/18 at 09:00 Amylase/Lipase/ Protease (Creon ([id number])) 1 cap WITH MEALS PO Last administered on 12/23/18 09:47; Admin Dose 1 CAP; Start 12/21/18 at 07:35 Pregabalin (Lyrica) 75 mg DAILY PO Last administered on 12/23/18 09:47; Admin Dose 75 MG; Start 12/21/18 at 09:00 Atorvastatin Calcium (Lipitor) 20 mg QHS PO Last administered on 12/22/18 20:58; Admin Dose 20 MG; Start 12/21/18 at 21:00 Docusate Sodium (Colace) 100 mg BID PO Last administered on 12/23/18 09:47; Admin Dose 100 MG; Start 12/20/18 at 21:30 Polyethylene Glycol (Miralax) 17 gm DAILY PRN PO CONSTIPATION Last administered on 12/23/18 09:47; Admin Dose 17 GM; Start 12/20/18 at 21:30 Promethazine HCl/ Codeine (Phenergan/ Codeine) 5 ml Q4H PRN PO COUGH Last administered on 12/21/18 16:39; Admin Dose 5 ML; Start 12/21/18 at 09:00 Lidocaine (Lidoderm) 1 patch DAILY TD Last administered on 12/23/18 09:47; Admin Dose 1 PATCH; Start 12/21/18 at 12:00 Acetaminophen/ Hydrocodone Bitart ([place] (5/325)) 1 tab Q4H PRN PO MODERATE PAIN LEVEL 4-6 Last administered on 12/23/18 09:46; Admin Dose 1 TAB; Start 12/21/18 at 13:00 Nicotine (Nicoderm 14 Mg/ 24hr) 1 patch DAILY TRANSDERM ; Start 12/23/18 at 12:00; Status UNV Acetylcysteine (Mucomyst) 2 ml Q6H RESP THERAPY NEB ; Start 12/23/18 at 14:00; Status UNV Methylprednisolone Sodium Succinate (Solu-Medrol) 125 mg ONCE ONCE IM ; Start 12/23/18 at 12:00; Stop 12/23/18 at 12:01; Status UNV Methylprednisolone Sodium Succinate (Solu-Medrol) 60 mg ONCE ONCE IV ; Start at 12:00; Stop 12/24/18 at 12:01; Status UNV Methylprednisolone Sodium Succinate (Solu-Medrol) 30 mg DAILY ONCE IV ; Start 12/24/18 at 09:00; Stop 12/24/18 at 09:01; Status UNV GILES BUENO MD Dec 23, 2018 12:10
--- NOTE | 2018-12-23 13:26 | CONS ---
DATE OF ADMISSION: 12/20/2018 DATE OF CONSULTATION: TYPE OF CONSULTATION: Pulmonary. REASON FOR CONSULTATION: Shortness of breath. Thank you, Dr. Quiroz, for this consultation. HISTORY OF PRESENT ILLNESS: This is a pleasant 78-year-old gentleman with a significant tobacco hist ory, hypertension, hyperlipidemia, had a syncopal episode with this fall approximately 1 week ago and since that time, he has had progressive shortness of breath and pleuritic chest pain. Occasional se mohinder cough, but no fever, no chills, no chest pain or palpitations. As stated, he has a significant prior tobacco history. PAST MEDICAL HISTORY: As above. MEDICATIONS: Per chart. ALLERGIES: NONE. SOCIAL HISTORY: Positive tobacco history. No alcohol, no history of drug use. FAMILY HISTORY: Noncontributory. REVIEW OF SYSTEMS: A 12-point review of systems was negative other than that mentioned above. PHYSICAL EXAMINATION: GENERAL: Well-nourished, well-developed gentleman, comfortable at rest, in no acute distress. VITAL SIGNS: Currently afebrile, pulse is 90, blood pressure 150/80, O2 saturation 96% on 2 liters n tutu cannula. NECK: Supple. No JVD or lymphadenopathy. CARDIAC: S1, S2. No added sounds or murmurs. CHEST: Diminished air entry both bases. ABDOMEN: Soft, nontender. EXTREMITIES: No cyanosis, clubbing. A 1+ edema. NEUROLOGIC: Grossly intact. No focal deficits. LABORATORIES: White count down to 11.4 from 16.2, platelets of 260. Chemistry: BUN 25, creatinine 1.52. DIAGNOSTIC DATA: Chest CT demonstrated bibasilar infiltrates. IMPRESSION AND PLAN: 1. Recent mechanical fall. 2. Community-acquired pneumonia. 3. Chronic obstructive pulmonary disease with possible acute exacerbation. The patient will require: 1. Continue bronchodilators. 2. Incentive spirometry. 3. Steroid taper. 4. Advice on smoking cessation. 5. DVT and GI prophylaxis. 6. Consider de-escalation of antibiotics. Dictated By: MILO BASS MD SV/LISA Conf#: [id number] DID#: [id number] CC: TIM DONNELLY MD; SOFIA QUIROZ MD;*EndCC*
[2018-12-23] MEDS: ACETYLCYSTEINE 20% 4 ML VIAL NEB SCH ×2 (14:00→20:50)
[2018-12-23 14:13] VITALS: BP 140/87; PULSE 101; RESP 16
[2018-12-23] MEDS: DEXTROSE 5%-0.9% NACL 1,000 ML IV SCH (14:48)
[2018-12-23] MEDS: NICOTINE (14 MG/24 HR) PATCH TRANSDERM SCH (14:50)
[2018-12-23] MEDS: MAGNESIUM SULFATE 2 GM/50 ML 50 ML IVPB SCH (16:42)
--- NOTE | 2018-12-23 19:44 | CONS ---
DATE OF ADMISSION: 12/20/2018 DATE OF CONSULTATION: Thank you, Dr. Martinez for medical management of this patient. REASON FOR CONSULTATION: Renal failure. HISTORY OF PRESENT ILLNESS: This 78-year-old man was admitted to the hospital after he presented to the emergency room 3 days ago complaining of right-sided chest pain and dyspnea. The patient was well until 12/14/2018 when he was sitting on a bench and the other person who was on the bench got up and the bench tipped over, and the patient fell and injured his right side along the rib cage. The patient initially went to [facility] and was x-rayed and not found to have any broken ribs. He was given [place] and sent home. Then, he became constipated and the right-sided chest pain became worse, especially with breathing or taking deep breaths. He denied fever, chills, abdominal pain. He denies syncope. 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 The patient does speak some Egyptian, but speaks mostly Welsh. The patient denies a history of kidney disease. He does have a history of hypertension. He denies diabetes mellitus. The patient was on antihypertensive medication on admission. MEDICATIONS: 1. He was taking Plavix 75 mg a day. 2. Iron sulfate. 3. Clonidine 0.1 mg twice a day. 4. Zetia 10 mg a day. 5. Losartan/hydrochlorothiazide 100/25 mg a day. 6. Lovaza 2g twice a day. 7. Simvastatin 40 mg a day. 8. Lyrica 75 mg daily. 9. Advair inhaler. 10. Creon with meals. 11. Vitamin D 50,000 units every 2 weeks. 12. Folic acid 1 mg a day. 13. Fosamax 70 mg a week. The patient is now off of the Losartan/hydrochlorothiazide. On admission, he had a serum creatinine of 1.44. The creatinine yesterday was 1.52. The patient on admission has bilateral lower lung pneumonia. He also has a history of emphysema from long history of smoking. PAST MEDICAL HISTORY: Remarkable for: 1. Chronic obstructive pulmonary disease. 2. Peripheral artery disease. 3. Coronary artery disease. 4. History of diastolic congestive heart failure. 5. Hypertension. 6. Hyperlipidemia. SOCIAL HISTORY: The patient does smoke daily. ALLERGIES: NO KNOWN DRUG ALLERGIES. PHYSICAL EXAMINATION: GENERAL: Well-developed man in no apparent distress. He is awake and alert. VITAL SIGNS: Temperature 98, pulse of 101, respirations 16, blood pressure 140/87, O2 saturation 93% on nasal cannula. HEENT: Head normocephalic. Eyes: Extraocular muscles intact. NOSE AND MOUTH: Normal. NECK: Supple. No neck vein distention. LUNGS: He has diminished breath sounds bilaterally. When he takes a deep breath he starts to cough. NEUROLOGIC: He has bilateral lower extremity coarse, rales, rhonchi and wheezes. HEART: Regular rhythm. No murmurs, gallops or rubs. ABDOMEN: Soft, nontender, no masses or megaly. No abdominal bruits. EXTREMITIES: No peripheral edema. IMPRESSION: 1. Acute versus chronic kidney disease. This patient on admission had an elevated serum creatinine. It has remained elevated in the hospital despite getting IV fluids. He does have an abnormal urinalysis, which shows 3+ proteinuria. He denies a prior history of kidney disease. He was on Losartan/hydrochlorothiazide before admission, which could cause an elevation in his serum creatinine; however, that was discontinued. He did have a CAT scan of the abdomen and pelvis, which did not show evidence of urinary obstruction. There was no mention of an actual kidney size, but there was no evidence of hydronephrosis. 2. Bilateral pneumonia with history and symptoms of emphysema. 3. Hypertension. 4. Anemia. 5. Vascular disease including peripheral artery disease, coronary artery disease. PLAN 1. Renal ultrasound for examination of renal cortex for chronic kidney disease 2. Urine protein creatinine ratio. 3. PTH level. 4. Continue current medications. 5. I will follow the patient along with you. Dictated By: CARMELLA TAM MD, ND/LISA Conf#: [id number] DID#: [id number] CC: TIM DONNELLY MD;*EndCC* MTDD
[2018-12-23 20:00] VITALS: BP 147/78; PULSE 112; RESP 19
[2018-12-23] MEDS: ATORVASTATIN 20 MG TAB PO SCH (21:58)
[2018-12-23] MEDS: EZETIMIBE 10 MG TAB PO SCH (21:58)
--- NOTE | 2018-12-23 23:03 | NUR ---
Gave report to Aixa Muniz RN for continuity of care. Pt alert and oriented, no signs of acute distress noted.
[2018-12-24 02:00] VITALS: BP 128/78; PULSE 115; RESP 18
[2018-12-24] MEDS: LEVALBUTEROL (NEB) 1.25 MG/0.5 ML AMP HHN SCH ×4 (02:00→20:09)
[2018-12-24] MEDS: DEXTROSE 5%-0.9% NACL 1,000 ML IV SCH (05:10)
--- NOTE | 2018-12-24 07:02 | NUR ---
no acute changes, pt remained afebrile with vss. fall precautions observed and continued. denies pain when asked. no episode of respiratory distress. needs attended to and anticipated with hourly rounding done. will endorse to next shift.
--- NOTE | 2018-12-24 07:11 | PN ---
Date/Time of Note Date/Time of Note DATE: 12/24/18 TIME: 07:08 Assessment/Plan VTE Prophylaxis Risk score (from Nsg)>0 risk: 4 SCD applied (from Nsg): Yes SCD contraindicated: low risk/ambulating Pharmacological prophylaxis: LMWH Lines/Catheters IV Catheter Type (from Nrsg): Peripheral IV Central line still needed: No Urinary Cath still in place: No Assessment/Plan Assessment/Plan COPD, PAD/CAD who suffered mechanical fall leading to rib trauma who presents with rib pain and found to have pneuomnia and likely CHF 1.severe right sided inferior lateral chest pain possible rib fracture reevaluate the CT .rib pain: - No fractures on CT. Pain control. Continue Lidoderm patch 2.Multifocal pneumonia-on CT - Suspect this is related to splingintg from rib apin Continue antibiotics-IV antibiotic Intensify-Nebulizers 3.Acute diastolic CHF: - Lasix - TTE pending 4.COPD exacerbation -Very mild at this time likely due to pneumonia -Nebulizers -Needs to stop smoking-5 days no cigarettes. We will add a small dose of Lidoderm patch 7 mg. Daily. -Able to tolerate room air 5.Acute kidney injury versus chronic kidney disease -May be secondary to volume depletion as patient has not been eating or drinking well in the past few days, very mild creatinine elevation, will hydrate and request a nephrology consult 6.Questionable syncope-actually the patient did not fell down although he described this as a loss of consciousness. But definitely he lost some part of his awareness about his surroundings about himself that he cannot recall what happened but again no episode of fall. -Patient doing okay however will get CT of the head to assess -Syncope was first well was on the fifth to second and was on the seventh according to him he had 2 other episodes while going to [facility] second time and another episode while coming to the [facility] last witnessed approximately 3 days ago, no episodes since in the hospital. -Ultrasound carotid as well as echocardiogram noted. 7.Constipation -Secondary to patient taking [place], added Colace and MiraLAX as needed-improving 8.Peripheral vascular disease-No evidence for hemodynamically significant stenosis in the bilateral internal carotid arteries- by validated velocity measurements. -Continue Plavix, not on baby aspirin 9.Hypertension-now normotensive; next-hold losartan and HIDA chlorothiazide as may make acute kidney injury worse, treat as needed 10.Dyslipidemia -Continue home meds 11. Nicotine addiction 12. Diverticulosis no diverticulitis. 13. Near syncopal episodes 14. Hypoxemia currently on home oxygen pulmonary consult will be requested- 15. Pericardial effusion on the CT of the chest 16. Anemia of chronic disease- anemia workup 17. Gastroesophageal reflux disease with history of gastritis. 18. Trace mitral and tricuspid insufficiency with aortic stenosis. 19. Pulmonary hypertension with estimated pulmonary artery pressure 32 20. Chronic sinusitis 21. Anxiety disorder with memory impairment-mild cerebral atrophy on the CT of the head 22. Leukocytosis improving 23. Incomplete data we will get more information from [facility] Disposition -Admitted for pain control, multifocal pneumonia and COPD exacerbation Result Diagram: 12/24/18 0617 12/22/18 0650 Results 24hrs Laboratory Tests Test 12/23/18 13:49 12/23/18 19:42 12/24/18 06:17 Lactic Acid Level 1.9 Magnesium Level 1.9 Iron Level 45 Total Iron Binding Capacity 204 L Percent Iron Saturation 22 Thyroid Stimulating Hormone (TSH) 0.975 Urine Color STRAW Urine Clarity CLEAR Urine pH 6.0 Urine Specific [place] 1.008 Urine Ketones NEGATIVE Urine Nitrite NEGATIVE Urine Bilirubin NEGATIVE Urine Urobilinogen NEGATIVE Urine Leukocyte Esterase NEGATIVE Urine Microscopic RBC 0 Urine Microscopic WBC 0 Urine Hemoglobin 1+ H Urine Random Creatinine 26.06 Urine Protein/Creatinine Ratio 1.99 Urine Glucose NEGATIVE Urine Total Protein 52.0 H White Blood Count 15.2 #H Red Blood Count 4.24 L Hemoglobin 11.2 L Hematocrit 33.9 L Mean Corpuscular Volume 80.0 L Mean Corpuscular Hemoglobin 26.4 L Mean Corpuscular Hemoglobin Concent 33.0 Red Cell Distribution Width 15.1 H Platelet Count 322 # Mean Platelet Volume 11.0 H Immature Granulocytes % 2.800 H Neutrophils % 84.4 H Lymphocytes % 7.9 L Monocytes % 4.7 Eosinophils % 0.0 Basophils % 0.2 Nucleated Red Blood Cells % 0.0 Immature Granulocytes # 0.430 H Neutrophils # 12.8 H Lymphocytes # 1.2 Monocytes # 0.7 Eosinophils # 0.0 Basophils # 0.0 Nucleated Red Blood Cells # 0.0 Subjective 24 Hr Interval Summary Free Text/Dictation Persistent right latera chest pain of 7-8/10 intensity and cough with sputum production which makes the pain 10/10. Constitutional: chills, febrile, poor po, requiring IVF, requiring O2; No no complaints, No improved, No diaphoresis, No disoriented, No other Eyes: discharge; No no complaints, No pain, No redness, No visual change, No other ENT: congestion, discharge, sore throat; No no complaints, No bleeding, No pain, No dysphagia, No other Respiratory: cough, pleuritic pain, shortness of breath; No no complaints, No pain, No sputum, No wheezing, No other Cardiovascular: chest pain, lightheadedness, orthopenea, palpitations, paroxysmal nocturnal dyspnea; No no complaints, No edema, No other Gastrointestinal: constipation, decreased appetite, flatus, nausea, passing stool, vomiting; No no complaints, No pain, No blood, No diarrhea, No other Genitourinary: dysuria; No no complaints, No bleeding, No discharge, No flank pain, No hematuria, No other Musculoskeletal: back pain, bone/joint pain, neck pain; No no complaints, No restricted range of motion, No swelling, No other Skin: pruritis; No no complaints, No bruising, No erythema, No laceration, No rash, No skin lesions, No other Neurologic: headache; No no complaints, No confusion, No dizziness, No focal-weakness, No syncope, No seizure, No other Endocrine: dry skin; No no complaints, No polyuria, No polydypsia, No temp intolerance, No other Exam/Review of Systems Exam Vitals Vital Signs Date Temp Pulse Resp B/P (MAP) Pulse Ox O2 O2 Flow FiO2 Time Delivery Rate 12/24/18 98.1 115 18 128/78 96 02:00 (95) 12/23/18 Nasal 2.0 23:10 Cannula 12/23/18 21 20:36 Intake and Output 12/23/18 12/23/18 12/24/18 1515:00 23:00 07:00 IntakeIntake Total 750 ml 570 ml 200 ml BalanceBalance 750 ml 570 ml 200 ml Constitutional: alert, well developed, distress, frail Psych: anxiety; No no complaints, No nl mood/affect, No confusion, No depression, No suicidal, No other Head: normocephalic, atraumatic Eyes: EOMI, nl lids, PERRL; No nl conjunctiva, No nl sclera, No icteric, No fundi, disc, No other ENMT: nl external ears & nose, nl nasal mucosa & septum; No nl lips & teeth, No mucosa pink and moist, No intubated, No tympanic membranes, No other Neck: supple, bruits; No non-tender, No jvd, No masses, No thyromegaly, No nuchal rigidity, No other Respiratory: congested cough, crackles/rales, diminished breath sounds, wheezing; No clear to auscultation, No normal air movement, No intercostal retraction, No labored breathing, No respirations, No tactile fremitus, No other Cardiovascular: regular rate and rhythm, bruits, systolic murmur; No nl pulses, No diastolic murmur, No edema, No gallop, No irregular rhythm, No jugular venous distention (JVD), No murmurs/extra sounds, No rub, No S3, No S4, No other Gastrointestinal: soft, nl liver, spleen, non-tender, bowel sounds, distended; No ascites, No firm, No hepatomegaly, No mass, No rebound or guarding, No splenomegaly, No surgical scars, No tender, No other Genitourinary - Male: nl penis, nl scrotum Musculoskeletal: joint tenderness, muscle tone, muscle weakness; No nl extremities to inspection, No nl gait and stance, No range of motion, No spine non-tender, No swelling, No other Extremities: No normal pulses, No calf tenderness, No cyanosis, No clubbing, No edema, No pitting pedal edema, No palpable cord, No tenderness, No other Neurological: HELMET BINDER II-XII intact (Hearing impairment.), nl mental status, nl strength (Decreased.), numbness; No nl speech, No confused, No DTR's symmetric, No focal weakness, No lethargic, No reflexes, No unresponsive, No other Skin: nl turgor (Decreased.); No rash or lesions, No diaphoresis, No ecchymosis, No laceration, No p uncture, No other Lymph: No nl lymph nodes, No enlarged, No nontender, No other Results Results 24hrs Laboratory Tests Test 12/23/18 13:49 12/23/18 19:42 12/24/18 06:17 Lactic Acid Level 1.9 Magnesium Level 1.9 Iron Level 45 Total Iron Binding Capacity 204 L Percent Iron Saturation 22 Thyroid Stimulating Hormone (TSH) 0.975 Urine Color STRAW Urine Clarity CLEAR Urine pH 6.0 Urine Specific [place] 1.008 Urine Ketones NEGATIVE Urine Nitrite NEGATIVE Urine Bilirubin NEGATIVE Urine Urobilinogen NEGATIVE Urine Leukocyte Esterase NEGATIVE Urine Microscopic RBC 0 Urine Microscopic WBC 0 Urine Hemoglobin 1+ H Urine Random Creatinine 26.06 Urine Protein/Creatinine Ratio 1.99 Urine Glucose NEGATIVE Urine Total Protein 52.0 H White Blood Count 15.2 #H Red Blood Count 4.24 L Hemoglobin 11.2 L Hematocrit 33.9 L Mean Corpuscular Volume 80.0 L Mean Corpuscular Hemoglobin 26.4 L Mean Corpuscular Hemoglobin Concent 33.0 Red Cell Distribution Width 15.1 H Platelet Count 322 # Mean Platelet Volume 11.0 H Immature Granulocytes % 2.800 H Neutrophils % 84.4 H Lymphocytes % 7.9 L Monocytes % 4.7 Eosinophils % 0.0 Basophils % 0.2 Nucleated Red Blood Cells % 0.0 Immature Granulocytes # 0.430 H Neutrophils # 12.8 H Lymphocytes # 1.2 Monocytes # 0.7 Eosinophils # 0.0 Basophils # 0.0 Nucleated Red Blood Cells # 0.0 Medications Medication Current Medications Cefepime HCl 50 ml @ 100 mls/hr Q12 IVPB Last administered on 12/23/18 21:59; Admin Dose 100 MLS/HR; Start 12/20/18 at 21:00 Levalbuterol (Xopenex Neb) 1.25 mg Q4H RESP THERAPY PRN HHN wheezing; Start 12/20/18 at 21:00 Levalbuterol (Xopenex Neb) 1.25 mg Q6H RESP THERAPY HHN Last administered on 12/23/18 20:38; Admin Dose 1.25 MG; Start 12/21/18 at 02:00 Ipratropium [place] (Atrovent 0.02% (Neb)) 0.5 mg Q2H RESP THERAPY PRN HHN SHORTNESS OF BREATH Last administered on 12/21/18 03:06; Admin Dose 0.5 MG; Start 12/20/18 at 21:00 Ipratropium [place] (Atrovent 0.02% (Neb)) 0.5 mg Q6HWA RESP THERAPY HHN Last administered on 12/23/18 20:38; Admin Dose 0.5 MG; Start 12/21/18 at 08:00 Budesonide (Pulmicort (Neb)) 0.5 mg BID RESP THERAPY HHN Last administered on 12/23/18 20:40; Admin Dose 0.5 MG; Start 12/21/18 at 09:00 IV Flush (NS 3 ml) 3 ml PER PROTOCOL IV ; Start 12/20/18 at 21:00 Ondansetron HCl (Zofran Inj) 4 mg Q6H PRN IV NAUSEA/VOMITING Last administered on 12/21/18 06:41; Admin Dose 4 MG; Start 12/20/18 at 21:00 Acetaminophen (Tylenol Tab) 650 mg Q6H PRN PO .PAIN 1-3 OR TEMP; Start 12/20/18 at 21:00 Labetalol HCl (Labetalol) 10 mg Q4H PRN IV sbp >160; Start 12/20/18 at 21:00 Clopidogrel Bisulfate (plaVIX) 75 mg DAILY PO Last administered on 12/23/18 09:47; Admin Dose 75 MG; Start 12/21/18 at 09:00 EZETIMIBE (Zetia) 10 mg HS PO Last administered on 12/23/18 21:58; Admin Dose 10 MG; Start 12/21/18 at 21:00 Folic Acid (Folic Acid) 1 mg DAILY PO Last administered on 12/23/18 09:47; Admin Dose 1 MG; Start 12/21/18 at 09:00 Amylase/Lipase/ Protease (Creon ([id number])) 1 cap WITH MEALS PO Last administered on 12/23/18 17:30; Admin Dose 1 CAP; Start 12/21/18 at 07:35 Pregabalin (Lyrica) 75 mg DAILY PO Last administered on 12/23/18 09:47; Admin Dose 75 MG; Start 12/21/18 at 09:00 Atorvastatin Calcium (Lipitor) 20 mg QHS PO Last administered on 12/23/18 21:58; Admin Dose 20 MG; Start 12/21/18 at 21:00 Docusate Sodium (Colace) 100 mg BID PO Last administered on 12/23/18 21:58; Admin Dose 100 MG; Start 12/20/18 at 21:30 Polyethylene Glycol (Miralax) 17 gm DAILY PRN PO CONSTIPATION Last administered on 12/23/18 09:47; Admin Dose 17 GM; Start 12/20/18 at 21:30 Promethazine HCl/ Codeine (Phenergan/ Codeine) 5 ml Q4H PRN PO COUGH Last administered on 12/21/18 16:39; Admin Dose 5 ML; Start 12/21/18 at 09:00 Lidocaine (Lidoderm) 1 patch DAILY TD Last administered on 12/23/18 09:47; A dmin Dose 1 PATCH; Start 12/21/18 at 12:00 Acetaminophen/ Hydrocodone Bitart ([place] (5/325)) 1 tab Q4H PRN PO MODERATE PAIN LEVEL 4-6 Last administered on 12/23/18 09:46; Admin Dose 1 TAB; Start 10/27 at 13:00 Nicotine (Nicoderm 14 Mg/ 24hr) 1 patch DAILY TRANSDERM ; Start 12/23/18 at 12:00 Acetylcysteine (Mucomyst) 2 ml Q6H RESP THERAPY NEB Last administered on 12/23/18 20:50; Admin Dose 2 ML; Start 12/23/18 at 14:00 Methylprednisolone Sodium Succinate (Solu-Medrol) 60 mg ONCE ONCE IV ; Start 12/24/18 at 12:00; Stop 12/24/18 at 12:01 Methylprednisolone Sodium Succinate (Solu-Medrol) 30 mg DAILY ONCE IV ; Start 12/25/18 at 09:00; Stop 12/25/18 at 09:01 Dextrose/Sodium Chloride 1,000 ml @ 60 mls/hr [id number] IV Last administered on 12/23/18 14:48; Admin Dose 60 MLS/HR; Start 12/23/18 at 12:30 Magnesium Sulfate 50 ml @ 25 mls/hr DAILY IVPB Last administered on 12/23/18 16:42; Admin Dose 25 MLS/HR; Start 12/23/18 at 16:30; Stop 12/24/18 at 16:29 SOFIA QUIROZ MD Dec 24, 2018 07:11
[2018-12-24] MEDS: IPRATROPIUM (NEB) 0.5 MG/2.5 ML AMP HHN SCH ×3 (07:48→20:09)
[2018-12-24] MEDS: ACETYLCYSTEINE 20% 4 ML VIAL NEB SCH ×3 (07:49→20:17)
[2018-12-24] MEDS: BUDESONIDE (NEB) 0.5MG/2ML AMP HHN SCH ×2 (07:50→20:10)
[2018-12-24 08:00] VITALS: BP 150/90; PULSE 105; RESP 18
--- NOTE | 2018-12-24 08:51 | NUR ---
rn notes patient's potassium level 5.5 dr. Martinez made aware and new order to give Kayexalate 30gm PO once now and repeat potassium lab at 1500 12/24/18
[2018-12-24] MEDS ORDERED: SODIUM POLYSTYRENE 15 GM KIT (POWDER + SORBITOL) PO ONE (09:00)
[2018-12-24] MEDS: CEFEPIME 1GM/50 ML (PMX) 50 ML IVPB SCH ×2 (09:21→20:44)
[2018-12-24] MEDS: FOLIC ACID 1 MG TAB PO SCH (09:22)
[2018-12-24] MEDS: DOCUSATE SODIUM 100 MG CAP PO SCH ×2 (09:22→20:44)
[2018-12-24] MEDS: PREGABALIN 75 MG CAP PO SCH (09:22)
[2018-12-24] MEDS: CLOPIDOGREL 75 MG TAB PO SCH (09:22)
[2018-12-24] MEDS: CREON (24K-76K-120K) 1 CAP PO SCH ×3 (09:22→17:19)
--- NOTE | 2018-12-24 09:25 | NUR ---
PT [facility] Patient: Lisa Barillas : 1940 Age/Sex: 78/M Unit#: [id number] Room/Bed: 2267/A User: Jt Means PT Date: 12/24/18 08:30 Type: PT Technical Record Therapy day number 1 Evaluation Start Time 08:30 Evaluation Total Time 0 min Subjective Current complaint of pain Pain Scale NUMERIC Pain Intensity 2 (0-10) Patient Stated Goal for Pain Relief 0 (0-10) Pain Level Comment R flank pain Pre Treatment Vital Signs Stable Yes - 178/83, 93%O2 sats on RA, 118bpm Exercise Assessment Label Bilat Lower Extremity Exercise Type Active ROM Additional Exercise Comments seated APs, LAQs, marching Supine to Sit Modified Independent Transfer Sit to Stand Ability Modified Independent Bed Mobility Sit to Supine Modified Independent Bed Transfer Ability Modified Independent Chair Transfer Ability Modified Independent Sitting Tolerance 15 min Patient uses wheelchair Not Applicable Gait Assist Levels Modified Independent Assistive Devices None Ambulation Distance 200 feet Additional Gait Comments fast fallon, steady, stable, no instances of LOB Weight Bearing Assessment Label Bilat Lower Extremity Weight Bearing Status Full Weight Bearing Static Sitting Balance Good Dynamic Sitting Balance Good Standing Static Balance Good Dynamic Standing Balance Good Additional Balance Assessments Comments without AD Safety Judgement Good Activity Tolerance Good Equipment Present IV pump Post Treatment Pain Intensity 0 0-10 Variance Documentation SEE PT EVAL PT Technical Record Comment PT EVAL Pt is a 78 yo M with PMH of severe COPD still smoking, dyslipidemia, PVD, HTN who had a syncopal episode with fall approximately 1 week ago (from 12/20/18) with resultant SOB and pleuritic chest pain. Admitting diagnoses include multifocal PNA, SOB, COPD exacerbation, MENA vs CKD, questionable syncope. Pt received in 2E, med/surg. PLOF: Pt lives with in 1st floor apartment with 2 steps to enter. Pt I with ADLs/mobility without AD, though uses SPC when feeling weak. CLOF: [facility]A [facility] cleared pt for PT evaluation. Pt received seated up in chair, agreeable to PT evaluation, communication via phone interprter (HIGINIO). Vitals assessed and stable. Pt participated in assessments above, amb 200' without AD. Pt returned to room up in bedside chair, chair alarm active, no signs of distress. RN notified of pt's status Recommendation: Pt presents at PLOF, amb 200' without use of AD with steady, stable gait and without LOB. No skilled acute care PT warranted at this time. Anticipating home d/c with family assistance as needed once cleared by MD. No anticipated DME needs. P: PT EVAL ONLY
[2018-12-24] MEDS: LIDOCAINE 5% PATCH TD SCH (09:33)
[2018-12-24] MEDS: MAGNESIUM SULFATE 2 GM/50 ML 50 ML IVPB SCH (11:20)
[2018-12-24] MEDS: NICOTINE (14 MG/24 HR) PATCH TRANSDERM SCH (11:20)
[2018-12-24 11:31] VITALS: BP 170/90; PULSE 108
--- NOTE | 2018-12-24 11:47 | CONS ---
Assessment/Plan Assessment/Plan Hospital Course (Demo Recall) 1. Chronic kidney disease stage III. This patient has evidence of chronic kidney disease . He has significant proteinuria with 2 g of protein per gram of creatinine on a urine protein / creatinine ratio. His renal ultrasound shows small size kidneys with echogenic renal cortex consistent with chronic kidney disease. 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 I have ordered a serum protein electrophoresis to rule out multiple myeloma. I will also add JIM, ANCA , serum complements and hemoglobin A1C to the labs for tomorrow. I would want to rule out other diseases as a cause of his renal disease . He does denies a h/o of DM but has had some elevated blood sugars while in the hospital . I would avoid any potentially nephrotoxic drugs including NSAIDS , JENNIFER inhibitors or angiotensin receptor blockers at this time. He is hyperkalemic today and he is being treated with Kayexalate. Consultation Date/Type/Reason Admit Date/Time Dec 20, 2018 at 20:38 Initial Consult Date 12/23/18 Type of Consult Nephrology Requesting Provider: SOFIA QUIROZ MD Date/Time of Note DATE: 12/24/18 TIME: 11:37 24 HR Interval Summary Free Text/Dictation This patient is being seen in nephrologic follow-up. He is awake and responsive. I did have a family member translate for me. Constitutional: improved Exam/Review of Systems Exam Vitals Vital Signs Date Temp Pulse Resp B/P (MAP) Pulse Ox O2 O2 Flow FiO2 Time Delivery Rate 12/24/18 108 170/90 11:31 (116) 12/24/18 98.0 18 93 Nasal 08:00 Cannula 12/24/18 2.0 08:00 12/24/18 21 07:58 Intake and Output 12/23/18 12/23/18 12/24/18 1515:00 23:00 07:00 IntakeIntake Total 750 ml 570 ml 500 ml BalanceBalance 750 ml 570 ml 500 ml Constitutional: alert, oriented Respiratory: congested cough, diminished breath sounds Cardiovascular: regular rate and rhythm Gastrointestinal: soft, non-tender Musculoskeletal: nl extremities to inspection Results Result Diagram: 12/24/18 0617 12/24/18 0617 Results 24hrs Laboratory Tests Test 12/23/18 13:49 12/23/18 19:42 12/24/18 06:17 Lactic Acid Level 1.9 Magnesium Level 1.9 Iron Level 45 Total Iron Binding Capacity 204 L Percent Iron Saturation 22 Thyroid Stimulating Hormone (TSH) 0.975 Urine Color STRAW Urine Clarity CLEAR Urine pH 6.0 Urine Specific [place] 1.008 Urine Ketones NEGATIVE Urine Nitrite NEGATIVE Urine Bilirubin NEGATIVE Urine Urobilinogen NEGATIVE Urine Leukocyte Esterase NEGATIVE Urine Microscopic RBC 0 Urine Microscopic WBC 0 Urine Hemoglobin 1+ H Urine Random Creatinine 26.06 Urine Protein/Creatinine Ratio 1.99 Urine Glucose NEGATIVE Urine Total Protein 52.0 H White Blood Count 15.2 #H Red Blood Count 4.24 L Hemoglobin 11.2 L Hematocrit 33.9 L Mean Corpuscular Volume 80.0 L Mean Corpuscular Hemoglobin 26.4 L Mean Corpuscular Hemoglobin Concent 33.0 Red Cell Distribution Width 15.1 H Platelet Count 322 # Mean Platelet Volume 11.0 H Immature Granulocytes % 2.800 H Neutrophils % 84.4 H Lymphocytes % 7.9 L Monocytes % 4.7 Eosinophils % 0.0 Basophils % 0.2 Nucleated Red Blood Cells % 0.0 Immature Granulocytes # 0.430 H Neutrophils # 12.8 H Lymphocytes # 1.2 Monocytes # 0.7 Eosinophils # 0.0 Basophils # 0.0 Nucleated Red Blood Cells # 0.0 Sodium Level 136 Potassium Level 5.5 H Chloride Level 99 Carbon Dioxide Level 27 Anion Gap 10 Blood Urea Nitrogen 34 H Creatinine 1.35 H Est Glomerular Filtrat Rate mL/min Glucose Level 132 Calcium Level 9.6 Phosphorus Level 3.8 Total Bilirubin 0.0 L Direct Bilirubin 0.00 Indirect Bilirubin 0.0 Aspartate Amino Transf (AST/SGOT) 77 H Alanine Aminotransferase (ALT/SGPT) 67 Alkaline Phosphatase 88 Total Protein 7.2 Albumin 3.7 Globulin 3.50 H Albumin/Globulin Ratio 1.05 Parathyroid Hormone (Intact) Medications Medication Current Medications Cefepime HCl 50 ml @ 100 mls/hr Q12 IVPB Last administered on 12/24/18at 09:21; Admin Dose 100 MLS/HR; Start 12/20/18 at 21:00 Levalbuterol (Xopenex Neb) 1.25 mg Q4H RESP THERAPY PRN HHN wheezing; Start 12/20/18 at 21:00 Levalbuterol (Xopenex Neb) 1.25 mg Q6H RESP THERAPY HHN Last administered on 12/24/18 07:48; Admin Dose 1.25 MG; Start 12/21/18 at 02:00 Ipratropium [place] (Atrovent 0.02% (Neb)) 0.5 mg Q2H RESP THERAPY PRN HHN SHORTNESS OF BREATH Last administered on 12/21/18 03:06; Admin Dose 0.5 MG; Start 12/20/18 at 21:00 Ipratropium [place] (Atrovent 0.02% (Neb)) 0.5 mg Q6HWA RESP THERAPY HHN Last administered on 12/24/18 07:48; Admin Dose 0.5 MG; Start 12/21/18 at 08:00 Budesonide (Pulmicort (Neb)) 0.5 mg BID RESP THERAPY HHN Last administered on 12/24/18 07:50; Admin Dose 0.5 MG; Start 12/21/18 at 09:00 IV Flush (NS 3 ml) 3 ml PER PROTOCOL IV ; Start 12/20/18 at 21:00 Ondansetron HCl (Zofran Inj) 4 mg Q6H PRN IV NAUSEA/VOMITING Last administered on 12/21/18 06:41; Admin Dose 4 MG; Start 12/20/18 at 21:00 Acetaminophen (Tylenol Tab) 650 mg Q6H PRN PO .PAIN 1-3 OR TEMP; Start 12/20/18 at 21:00 Labetalol HCl (Labetalol) 10 mg Q4H PRN IV sbp >160; Start 12/20/18 at 21:00 Clopidogrel Bisulfate (plaVIX) 75 mg DAILY PO Last administered on 12/24/18 09 :22; Admin Dose 75 MG; Start 12/21/18 at 09:00 EZETIMIBE (Zetia) 10 mg HS PO Last administered on 12/23/18 21:58; Admin Dose 10 MG; Start 12/21/18 at 21:00 Folic Acid (Folic Acid) 1 mg DAILY PO Last administered on 12/24/18 09:22; Admin Dose 1 MG; Start 12/21/18 at 09:00 Amylase/Lipase/ Protease (Creon ([id number])) 1 cap WITH MEALS PO Last administered on 12/24/18 09:22; Admin Dose 1 CAP; Start 12/21/18 at 07:35 Pregabalin (Lyrica) 75 mg DAILY PO Last administered on 12/24/18 09:22; Admin Dose 75 MG; Start 12/21/18 at 09:00 Atorvastatin Calcium (Lipitor) 20 mg QHS PO Last administered on 12/23/18 21:58; Admin Dose 20 MG; Start 12/21/18 at 21:00 Docusate Sodium (Colace) 100 mg BID PO Last administered on 12/24/18 09:22; Admin Dose 100 MG; Start 12/20/18 at 21:30 Polyethylene Glycol (Miralax) 17 gm DAILY PRN PO CONSTIPATION Last administered on 12/23/18 09:47; Admin Dose 17 GM; Start 12/20/18 at 21:30 Promethazine HCl/ Codeine (Phenergan/ Codeine) 5 ml Q4H PRN PO COUGH Last administered on 12/21/18 16:39; Admin Dose 5 ML; Start 12/21/18 at 09:00 Lidocaine (Lidoderm) 1 patch DAILY TD Last administered on 12/24/18 09:33; Admin Dose 1 PATCH; Start 12/21/18 at 12:00 Nicotine (Nicoderm 14 Mg/ 24hr) 1 patch DAILY TRANSDERM Last administered on 12/24/18 11:20; Admin Dose 1 PATCH; Start 12/23/18 at 12:00 Acetylcysteine (Mucomyst) 2 ml Q6H RESP THERAPY NEB Last administered on 12/24/18 07:49; Admin Dose 2 ML; Start 12/23/18 at 14:00 Methylprednisolone Sodium Succinate (Solu-Medrol) 60 mg ONCE ONCE IV ; Start 12/24/18 at 12:00; Stop 12/24/18 at 12:01 Methylprednisolone Sodium Succinate (Solu-Medrol) 30 mg DAILY ONCE IV ; Start 12/25/18 at 09:00; Stop 12/25/18 at 09:01 Dextrose/Sodium Chloride 1,000 ml @ 60 mls/hr [id number] IV Last administered on 12/23/18 14:48; Admin Dose 60 MLS/HR; Start 12/23/18 at 12:30 Magnesium Sulfate 50 ml @ 25 mls/hr DAILY IVPB Last administered on 12/24/18 11:20; Admin Dose 25 MLS/HR; Start 12/23/18 at 16:30; Stop 12/24/18 at 16:29 CARMELLA TAM MD Dec 24, 2018 11:47
[2018-12-24] MEDS ORDERED: METHYLPREDNISOLONE 125 MG INJ IV ONE (12:00)
--- NOTE | 2018-12-24 13:10 | CONS ---
Consult Date/Type/Reason Admit Date/Time Dec 20, 2018 at 20:38 Initial Consult Date 12/23/18 Type of Consult Pulmonary Requesting Provider: SOFIA QUIROZ MD Date/Time of Note DATE: 12/24/18 TIME: 13:06 Subjective Patient stable this morning. No new events Objective Vital Signs Date Temp Pulse Resp B/P (MAP) Pulse Ox O2 O2 Flow FiO2 Time Delivery Rate 12/24/18 108 170/90 11:31 (116) 12/24/18 98.0 18 93 Nasal 08:00 Cannula 12/24/18 2.0 08:00 12/24/18 07:58 Intake and Output 12/23/18 12/23/18 12/24/18 1515:00 23:00 07:00 IntakeIntake Total 750 ml 570 ml 500 ml BalanceBalance 750 ml 570 ml 500 ml Exam PHYSICAL EXAMINATION: GENERAL: Well-nourished, well-developed gentleman, comfortable at rest, in no acute distress. VITAL SIGNS: NECK: Supple. No JVD or lymphadenopathy. CARDIAC: S1, S2. No added sounds or murmurs. CHEST: Diminished air entry both bases. ABDOMEN: Soft, nontender. EXTREMITIES: No cyanosis, clubbing. A 1+ edema. NEUROLOGIC: Grossly intact. No focal deficits. Vent Setting Fraction of Inspired Oxygen pe: 21 Results/Medications Result Diagram: 12/24/1817 12/24/18 0617 Results 24 hrs Laboratory Tests Test 12/23/18 13:49 12/23/18 19:42 12/24/18 06:17 Lactic Acid Level 1.9 Magnesium Level 1.9 Iron Level 45 Total Iron Binding Capacity 204 L Percent Iron Saturation 22 Thyroid Stimulating Hormone (TSH) 0.975 Urine Color STRAW Urine Clarity CLEAR Urine pH 6.0 Urine Specific [place] 1.008 Urine Ketones NEGATIVE Urine Nitrite NEGATIVE Urine Bilirubin NEGATIVE Urine Urobilinogen NEGATIVE Urine Leukocyte Esterase NEGATIVE Urine Microscopic RBC 0 Urine Microscopic WBC 0 Urine Hemoglobin 1+ H Urine Random Creatinine 26.06 Urine Protein/Creatinine Ratio 1.99 Urine Glucose NEGATIVE Urine Total Protein 52.0 H White Blood Count 15.2 #H Red Blood Count 4.24 L Hemoglobin 11.2 L Hematocrit 33.9 L Mean Corpuscular Volume 80.0 L Mean Corpuscular Hemoglobin 26.4 L Mean Corpuscular Hemoglobin Concent 33.0 Red Cell Distribution Width 15.1 H Platelet Count 322 # Mean Platelet Volume 11.0 H Immature Granulocytes % 2.800 H Neutrophils % 84.4 H Lymphocytes % 7.9 L Monocytes % 4.7 Eosinophils % 0.0 Basophils % 0.2 Nucleated Red Blood Cells % 0.0 Immature Granulocytes # 0.430 H Neutrophils # 12.8 H Lymphocytes # 1.2 Monocytes # 0.7 Eosinophils # 0.0 Basophils # 0.0 Nucleated Red Blood Cells # 0.0 Sodium Level 136 Potassium Level 5.5 H Chloride Level 99 Carbon Dioxide Level 27 Anion Gap 10 Blood Urea Nitrogen 34 H Creatinine 1.35 H Est Glomerular Filtrat Rate mL/min Glucose Level 132 Calcium Level 9.6 Phosphorus Level 3.8 Total Bilirubin 0.0 L Direct Bilirubin 0.00 Indirect Bilirubin 0.0 Aspartate Amino Transf (AST/SGOT) 77 H Alanine Aminotransferase (ALT/SGPT) 67 Alkaline Phosphatase 88 Total Protein 7.2 Albumin 3.7 Globulin 3.50 H Albumin/Globulin Ratio 1.05 Parathyroid Hormone (Intact) Medications Current Medications Cefepime HCl 50 ml @ 100 mls/hr Q12 IVPB Last administered on 12/24/18at 09:21; Admin Dose 100 MLS/HR; Start 12/20/18 at 21:00 Levalbuterol (Xopenex Neb) 1.25 mg Q4H RESP THERAPY PRN HHN wheezing; Start 12/20/18 at 21:00 Levalbuterol (Xopenex Neb) 1.25 mg Q6H RESP THERAPY HHN Last administered on 12/24/18at 07:48; Admin Dose 1.25 MG; Start 12/21/18 at 02:00 Ipratropium [place] (Atrovent 0.02% (Neb)) 0.5 mg Q2H RESP THERAPY PRN HHN SHORTNESS OF BREATH Last administered on 12/21/18at 03:06; Admin Dose 0.5 MG; Start 12/20/18 at 21:00 Ipratropium [place] (Atrovent 0.02% (Neb)) 0.5 mg Q6HWA RESP THERAPY HHN Last administered on 12/24/18at 07:48; Admin Dose 0.5 MG; Start 12/21/18 at 08:00 Budesonide (Pulmicort (Neb)) 0.5 mg BID RESP THERAPY HHN Last administered on 12/24/18 07:50; Admin Dose 0.5 MG; Start 12/21/18 at 09:00 IV Flush (NS 3 ml) 3 ml PER PROTOCOL IV ; Start 12/20/18 at 21:00 Ondansetron HCl (Zofran Inj) 4 mg Q6H PRN IV NAUSEA/VOMITING Last administered on 12/21/18 06:41; Admin Dose 4 MG; Start 12/20/18 at 21:00 Acetaminophen (Tylenol Tab) 650 mg Q6H PRN PO .PAIN 1-3 OR TEMP; Start 12/20/18 at 21:00 Labetalol HCl (Labetalol) 10 mg Q4H PRN IV sbp >160; Start 12/20/18 at 21:00 Clopidogrel Bisulfate (plaVIX) 75 mg DAILY PO Last administered on 12/24/18 09:22; Admin Dose 75 MG; Start 12/21/18 at 09:00 EZETIMIBE (Zetia) 10 mg HS PO Last administered on 12/23/18 21:58; Admin Dose 10 MG; Start 12/21/18 at 21:00 Folic Acid (Folic Acid) 1 mg DAILY PO Last administered on 12/24/18 09:22; Admin Dose 1 MG; Start 12/21/18 at 09:00 Amylase/Lipase/ Protease (Creon ([id number])) 1 cap WITH MEALS PO Last administered on 12/24/18 11:44; Admin Dose 1 CAP; Start 12/21/18 at 07:35 Pregabalin (Lyrica) 75 mg DAILY PO Last administered on 12/24/18 09:22; Admin Dose 75 MG; Start 12/21/18 at 09:00 Atorvastatin Calcium (Lipitor) 20 mg QHS PO Last administered on 12/23/18 21:58; Admin Dose 20 MG; Start 12/21/18 at 21:00 Docusate Sodium (Colace) 100 mg BID PO Last administered on 12/24/18 09:22; Admin Dose 100 MG; Start 12/20/18 at 21:30 Polyethylene Glycol (Miralax) 17 gm DAILY PRN PO CONSTIPATION Last administered on 12/23/18 09:47; Admin Dose 17 GM; Start 12/20/18 at 21:30 Promethazine HCl/ Codeine (Phenergan/ Codeine) 5 ml Q4H PRN PO COUGH Last administered on 12/21/18 16:39; Admin Dose 5 ML; Start 12/21/18 at 09:00 Lidocaine (Lidoderm) 1 patch DAILY TD Last administered on 12/24/18 09:33; Admin Dose 1 PATCH; Start 12/21/18 at 12:00 Nicotine (Nicoderm 14 Mg/ 24hr) 1 patch DAILY TRANSDERM Last administered on 12/24/18 11:20; Admin Dose 1 PATCH; Start 12/23/18 at 12:00 Acetylcysteine (Mucomyst) 2 ml Q6H RESP THERAPY NEB Last administered on 12/24/18 07:49; Admin Dose 2 ML; Start 12/23/18 at 14:00 Methylprednisolone Sodium Succinate (Solu-Medrol) 30 mg DAILY ONCE IV ; Start 12/25/18 at 09:00; Stop 12/25/18 at 09:01 Magnesium Sulfate 50 ml @ 25 mls/hr DAILY IVPB Last administered on 12/24/18 11:20; Admin Dose 25 MLS/HR; Start 12/23/18 at 16:30; Stop 12/24/18 at 16:29 Clonidine (Catapres) 0.1 mg Q6H PRN PO SBP GREATER THAN 160 Last administered on 12/24/18 11:44; Admin Dose 0.1 MG; Start 12/24/18 at 11:30 Assessment/Plan Hospital Course (Demo Recall) IMPRESSION 1. Recent mechanical fall. 2. Community-acquired pneumonia. 3. Chronic obstructive pulmonary disease with possible acute exacerbation. plan 1. Continue bronchodilators. 2. Incentive spirometry. 3. Steroid taper. 4. Advice on smoking cessation. 5. DVT and GI prophylaxis. 6. Consider de-escalation of antibiotics. dc planning [facility] Dec 24, 2018 13:10
[2018-12-24 14:29] VITALS: BP 158/80; PULSE 116; RESP 18
--- NOTE | 2018-12-24 18:57 | NUR ---
RN notes patient is alert and oriented X4, verbally responsive and able to make needs known, denies pain and discomfort. no s/s of acute distress noted. all due medicine given and all needs attended to. call light placed within reach. fall precautions observed well. will continue to monitor. potassium level repeated, noted 4.4
[2018-12-24 20:00] VITALS: BP 136/70; PULSE 100; RESP 19
[2018-12-24] MEDS: ATORVASTATIN 20 MG TAB PO SCH (20:44)
[2018-12-24] MEDS: EZETIMIBE 10 MG TAB PO SCH (20:44)
[2018-12-25 02:00] VITALS: BP 139/62; PULSE 94; RESP 18
[2018-12-25] MEDS: LEVALBUTEROL (NEB) 1.25 MG/0.5 ML AMP HHN SCH ×3 (02:02→13:09)
[2018-12-25] MEDS: ACETYLCYSTEINE 20% 4 ML VIAL NEB SCH ×2 (02:02→08:03)
--- NOTE | 2018-12-25 07:01 | NUR ---
Pt is alert and oriented x4. He has been ambulating to the restroom with standby assistance. Pt denies pain. He does not like the bed alarm, but explained to pt the importance of it and he agreed to keep it on. Encouraged pt to turn side to side every two hours. Vital signs stable. No other acute events overnight. Will continue monitoring pt.
[2018-12-25 07:50] VITALS: BP 159/84; PULSE 92; RESP 16
[2018-12-25] MEDS: IPRATROPIUM (NEB) 0.5 MG/2.5 ML AMP HHN SCH ×2 (08:03→13:09)
[2018-12-25] MEDS: BUDESONIDE (NEB) 0.5MG/2ML AMP HHN SCH (08:09)
[2018-12-25] MEDS: CEFEPIME 1GM/50 ML (PMX) 50 ML IVPB SCH (08:59)
[2018-12-25] MEDS: LIDOCAINE 5% PATCH TD SCH (08:59)
[2018-12-25] MEDS: CLOPIDOGREL 75 MG TAB PO SCH (08:59)
[2018-12-25] MEDS: NICOTINE (14 MG/24 HR) PATCH TRANSDERM SCH (09:00)
[2018-12-25] MEDS: PREGABALIN 75 MG CAP PO SCH (09:00)
[2018-12-25] MEDS: CREON (24K-76K-120K) 1 CAP PO SCH ×2 (09:00→11:37)
[2018-12-25] MEDS ORDERED: METHYLPREDNISOLONE 40 MG INJ IV ONE (09:00)
[2018-12-25] MEDS: FOLIC ACID 1 MG TAB PO SCH (09:01)
[2018-12-25] MEDS: DOCUSATE SODIUM 100 MG CAP PO SCH (09:01)
--- NOTE | 2018-12-25 09:06 | PDOCDIS ---
Discharge Instructions DIAGNOSIS Discharge Diagnosis COPD, PAD/CAD who suffered mechanical fall leading to rib trauma who presents with rib pain and found to have pneuomnia and likely CHF 1.severe right sided inferior lateral chest pain possible rib fracture reevaluate the CT .rib pain: - No fractures on CT. Pain control. Continue Lidoderm patch 2.Multifocal pneumonia-on CT - Suspect this is related to splingintg from rib apin Continue antibiotics-IV antibiotic Intensify-Nebulizers 3.Acute diastolic CHF: - Lasix - TTE pending 4.COPD exacerbation -Very mild at this time likely due to pneumonia -Nebulizers -Needs to stop smoking-5 days no cigarettes. We will add a small dose of Lidoderm patch 7 mg. Daily. -Able to tolerate room air 5.Acute kidney injury versus chronic kidney disease -May be secondary to volume depletion as patient has not been eating or drinking well in the past few days, very mild creatinine elevation, will hydrate and request a nephrology consult 6.Questionable syncope-actually the patient did not fell down although he described this as a loss of consciousness. But definitely he lost some part of his awareness about his surroundings about himself that he cannot recall what happened but again no episode of fall. -Patient doing okay however will get CT of the head to assess -Syncope was first well was on the fifth to second and was on the seventh according to him he had 2 other episodes while going to [facility] second time and another episode while coming to the [facility] last witnessed approximately 3 days ago, no episodes since in the hospital. -Ultrasound carotid as well as echocardiogram noted. 7.Constipation -Secondary to patient taking Anna, added Colace and MiraLAX as needed-improving 8.Peripheral vascular disease-No evidence for hemodynamically significant stenosis in the bilateral internal carotid arteries- by validated velocity measurements. -Continue Plavix, not on baby aspirin 9.Hypertension-now normotensive; next-hold losartan and HIDA chlorothiazide as may make acute kidney injury worse, treat as needed 10.Dyslipidemia -Continue home meds 11. Nicotine addiction 12. Diverticulosis no diverticulitis. 13. Near syncopal episodes 14. Hypoxemia currently on home oxygen pulmonary consult will be requested- 15. Pericardial effusion on the CT of the chest 16. Anemia of chronic disease- anemia workup 17. Gastroesophageal reflux disease with history of gastritis. 18. Trace mitral and tricuspid insufficiency with aortic stenosis. 19. Pulmonary hypertension with estimated pulmonary artery pressure 32 20. Chronic sinusitis 21. Anxiety disorder with memory impairment-mild cerebral atrophy on the CT of the head 22. Leukocytosis improving 23. Incomplete data we will get more information from [facility] Disposition -Admit patient for multifocal pneumonia and mild COPD exacerbation CONDITION [id number] Patient Condition: [id number] Guarded HOME CARE INSTRUCTIONS: [id number] Diet Instructions: [id number] y [id number] Bathing Restrictions: [id number] Shower FOLLOW UP/APPOINTMENTS Follow-up Plan In 7 days to . In 10 days to . In [address] Carter. SCHOOL/WORK RELEASE May return to School/Work with: With Restrictions (None.) SOFIA QUIROZ MD Dec 25, 2018 09:06
--- NOTE | 2018-12-25 09:26 | DS ---
Date/Time of Note Date/Time of Note DATE: 12/25/18 TIME: 09:22 Discharge Summary Admission/Discharge Info Admit Date/Time Dec 20, 2018 at 20:38 Discharge Date/Time December 25, 2018 15 00. Discharge Diagnosis COPD, PAD/CAD who suffered mechanical fall leading to rib trauma who presents with rib pain and found to have pneuomnia and likely CHF 1.severe right sided inferior lateral chest pain possible rib fracture reevaluate the CT .rib pain: - No fractures on CT. Pain control. Continue Lidoderm patch 2.Multifocal pneumonia-on CT - Suspect this is related to splingintg from rib apin Continue antibiotics-IV antibiotic Intensify-Nebulizers 3.Acute diastolic CHF: - Lasix - TTE pending 4.COPD exacerbation -Very mild at this time likely due to pneumonia -Nebulizers -Needs to stop smoking-5 days no cigarettes. We will add a small dose of Lidoderm patch 7 mg. Daily. -Able to tolerate room air 5.Acute kidney injury versus chronic kidney disease -May be secondary to volume depletion as patient has not been eating or drinking well in the past few days, very mild creatinine elevation, will hydrate and request a nephrology consult 6.Questionable syncope-actually the patient did not fell down although he described this as a loss of consciousness. But definitely he lost some part of his awareness about his surroundings about himself that he cannot recall what happened but again no episode of fall. -Patient doing okay however will get CT of the head to assess -Syncope was first well was on the fifth to second and was on the seventh according to him he had 2 other episodes while going to [facility] second time and another episode while coming to the [facility] last witnessed approximately 3 days ago, no episodes since in the hospital. -Ultrasound carotid as well as echocardiogram noted. 7.Constipation -Secondary to patient taking Bypro, added Colace and MiraLAX as needed-improving 8.Peripheral vascular disease-No evidence for hemodynamically significant stenosis in the bilateral internal carotid arteries- by validated velocity measurements. -Continue Plavix, not on baby aspirin 9.Hypertension-now normotensive; next-hold losartan and HIDA chlorothiazide as may make acute kidney injury worse, treat as needed 10.Dyslipidemia -Continue home meds 11. Nicotine addiction 12. Diverticulosis no diverticulitis. 13. Near syncopal episodes 14. Hypoxemia currently on home oxygen pulmonary consult will be requested- 15. Pericardial effusion on the CT of the chest 16. Anemia of chronic disease- anemia workup 17. Gastroesophageal reflux disease with history of gastritis. 18. Trace mitral and tricuspid insufficiency with aortic stenosis. 19. Pulmonary hypertension with estimated pulmonary artery pressure 32 20. Chronic sinusitis 21. Anxiety disorder with memory impairment-mild cerebral atrophy on the CT of the head 22. Leukocytosis improving 23. Incomplete data we will get more information from [facility] Disposition -Admitted for pain control, multifocal pneumonia and COPD exacerbation Patient Condition: Guarded Hospital Course Main reason of admission the patient was right-sided chest pain after the episode of fall and mechanical injury of the inferior lateral part of the right rib cage. Yesterday I was in her [facility] as the radiologist to review the first CT of the chest with contrast from standpoint of possible fracture of right sided T9-10 possible T11-12 fractures where her pain is located mainly. According to the radiologist and the [facility] there is the possibility of a nondisplaced fracture of the T9 on the right side. Infiltrates I was unable to get the answer of the same questions so far but they will pursued message was left to the radiologist unable to contact directly. The patient with COPD heavy smoker while being on home oxygen and 3 nebulizers was explained the grim prognosis in terms of further deterioration of her lung function if he continues to smoke it appears that he understood we will continue that workup NicoDerm patch will be continued as an outpatient along with the nebulizers tapering down prednisone with 3 days for 20 mg 3 days for 10 mg and then 5 mg will be continued until patient will be seen as an outpatient. Home Meds Reported Medications Salmeterol Xinaf-Fluticasone* (Advair*) 500/50 Diskus Inhaler, 1 INH INHALATION BID, #1 INHALER 12/20/18 Alendronate Sodium* (Fosamax*) 70 Mg Tablet, 70 MG PO Q 2 WEEK, #4 TAB 12/20/18 Ezetimibe* (Zetia*) 10 Mg Tablet, 10 MG PO HS, TAB 12/20/18 Losartan-Hydrochlorothiazide (Losartan-HCTZ) 100-25 Mg Tab, 1 TAB PO DAILY, TAB 12/20/18 Simvastatin* (Zocor*) 40 Mg Tablet, 40 MG PO QHS, #30 TAB 2/11/19 Folic Acid* (Folic Acid*) 1 Mg Tablet, 1 MG PO DAILY, TAB 12/20/18 Ergocalciferol (Vitamin D2) (VITAMIN D2) 50,000 Unit Capsule, 85000 UNIT PO Q 2 WEEK, CAP 12/20/18 Ferrous Sulfate* (Ferrous Sulfate*) 325 Mg Tabec, 325 MG PO BID, TAB 12/20/18 Clonidine Hcl* (Clonidine Hcl*) 0.1 Mg Tab, 0.1 MG PO BID PRN for NEEDED, TAB 12/20/18 [place]-3 Acid Ethyl Esters (Lovaza) 1 Gm Capsule, 2 GM PO BID, CAP 12/20/18 Pregabalin* (Lyrica*) 75 Mg Capsule, 75 MG PO DAILY, CAP 12/20/18 Qlthax-Thtszwnc-Ezytzsp* (Vane DR* 24,000) 24,000 L-76,000-120,000 Unit Capsule.dr, 1 CAP PO WITH MEALS, CAP 12/20/18 Clopidogrel Bisulfate* (Clopidogrel Bisulfate*) 75 Mg Tablet, 75 MG PO DAILY, #30 TAB 12/20/18 Discontinued Reported Medications Alendronate Sodium* (Alendronate Sodium*) 40 Mg Tablet, 70 MG PO DAILY, TAB 05/16/14 Esomeprazole Mag Trihydrate (Nexium) 40 Mg Capsule.dr, 40 MG PO DAILY, CAP 05/16/14 Methimazole* (Methimazole*) 10 Mg Tablet, 10 MG PO BID, TAB 05/16/14 Losartan-Hydrochlorothiazide (Losartan-HCTZ) 100-25 Mg Tab, 1 TAB PO DAILY, TAB 05/16/14 Clopidogrel Bisulfate* (Clopidogrel Bisulfate*) 75 Mg Tablet, 75 MG PO DAILY, TAB 05/16/14 Olanzapine* (Olanzapine*) 7.5 Mg Tablet, 5 MG PO DAILY, TAB 05/16/14 Ezetimibe* (Zetia*) 10 Mg Tablet, 10 MG PO DAILY, TAB 05/16/14 Aspirin (Aspirin) 81 Mg Tablet, 81 MG PO DAILY 05/19/12 Follow-up Plan In 7 days to . In 10 days to . In [address] Carter. Primary Care Provider Carl Quiroz MD Time spent on discharge: > 30 minutes Pending Labs Laboratory Tests Test 12/24/18 14:51 12/25/18 05:15 Potassium Level 4.4 mmol/L (3.5-5.1) 4.4 mmol/L (3.5-5.1) White Blood Count 16.8 10^3/ul (4.8-10.8) Red Blood Count 4.00 10^6/ul (4.70-6.10) Hemoglobin 10.5 g/dl (14.0-18.0) Hematocrit 32.2 % (42.0-52.0) Mean Corpuscular Volume 80.5 fl (82.0-101.0) Mean Corpuscular Hemoglobin 26.3 pg (29.0-33.0) Mean Corpuscular 32.6 g/dl (32.0-37.0) Hemoglobin Concent Red Cell Distribution Width 15.5 % (11.5-14.5) Platelet Count 338 10^3/UL (140-415) Mean Platelet Volume 11.1 fl (7.4-10.4) Immature Granulocytes % 1.900 % (0.001-0.429) Neutrophils % 77.1 % (39.0-77.0) Lymphocytes % 13.6 % (15.0-51.0) Monocytes % 7.0 % (0.0-11.0) Eosinophils % 0.2 % (0.0-7.0) Basophils % 0.2 % (0.0-2.0) Nucleated Red Blood Cells % 0.0 /100WBC (0.0-0.0) Immature Granulocytes # 0.320 10^3/ul (0.0-0.031) Neutrophils # 13.0 10^3/ul (1.6-7.5) Lymphocytes # 2.3 10^3/ul (0.8-2.9) Monocytes # 1.2 10^3/ul (0.3-0.9) Eosinophils # 0.0 10^3/ul (0.0-0.5) Basophils # 0.0 10^3/ul (0.0-0.1) Nucleated Red Blood Cells # 0.0 10^3/ul (0.0-0.0) Sodium Level 139 mmol/L (135-144) Chloride Level 99 mmol/L (97-110) Carbon Dioxide Level 29 mmol/L (21-31) Anion Gap 11 (5-13) Blood Urea Nitrogen 37 mg/dl (7-20) Creatinine 1.34 mg/dl (0.61-1.24) Est Glomerular Filtrat mL/min (>60) Rate mL/min Glucose Level 115 mg/dl (70-220) Calcium Level 9.4 mg/dl (8.4-10.2) Total Bilirubin 0.0 mg/dl (0.2-1.3) Direct Bilirubin 0.00 mg/dl (0.00-0.20) Indirect Bilirubin 0.0 mg/dl (0-1.1) Aspartate Amino 88 IU/L (15-46) Transf (AST/SGOT) Alanine 86 IU/L (13-69) Aminotransferase (ALT/SGPT) Alkaline Phosphatase 77 IU/L (42-121) Total Protein 6.7 g/dl (6.1-8.1) Albumin 3.5 g/dl (3.3-4.9) Globulin 3.20 g/dl (1.3-3.2) Albumin/Globulin Ratio 1.09 CARL QUIROZ MD Dec 25, 2018 09:26
--- NOTE | 2018-12-25 11:20 | CONS ---
Consult Date/Type/Reason Admit Date/Time Dec 20, 2018 at 20:38 Initial Consult Date 12/23/18 Type of Consult Pulmonary Requesting Provider: SOFIA QUIROZ MD Date/Time of Note DATE: 12/25/18 TIME: 11:20 Subjective Sitting up in chair comfortable no respiratory distress Objective Vital Signs Date Temp Pulse Resp B/P (MAP) Pulse Ox O2 O2 Flow FiO2 Time Delivery Rate 12/25/18 Nasal 2.0 09:48 Cannula 12/25/18 90 16 98 21 08:20 12/25/18 98.0 159/84 07:50 (109) Intake and Output 12/24/18 12/24/18 12/25/18 1515:00 23:00 07:00 IntakeIntake Total 770 ml 350 ml 240 ml BalanceBalance 770 ml 350 ml 240 ml Exam GENERAL: VITAL SIGNS: per chart NECK: Supple. No JVD or lymphadenopathy. CARDIAC EXAM: S1, S2. No added sounds or murmurs. CHEST: clear bilaterally, No added sounds, rales or wheezes ABDOMEN: Soft, nontender. No guarding or rebound. EXTREMITIES: No cyanosis, clubbing or edema. NEUROLOGIC: Generalized weakness. No focal deficits. Vent Setting Fraction of Inspired Oxygen pe: 21 Results/Medications Result Diagram: 12/25/18 0515 12/25/18 0515 Results 24 hrs Laboratory Tests Test 12/24/18 14:51 12/25/18 05:15 Potassium Level 4.4 4.4 White Blood Count 16.8 H Red Blood Count 4.00 L Hemoglobin 10.5 L Hematocrit 32.2 L Mean Corpuscular Volume 80.5 L Mean Corpuscular Hemoglobin 26.3 L Mean Corpuscular Hemoglobin Concent 32.6 Red Cell Distribution Width 15.5 H Platelet Count 338 Mean Platelet Volume 11.1 H Immature Granulocytes % 1.900 H Neutrophils % 77.1 H Lymphocytes % 13.6 L Monocytes % 7.0 Eosinophils % 0.2 Basophils % 0.2 Nucleated Red Blood Cells % 0.0 Immature Granulocytes # 0.320 H Neutrophils # 13.0 H Lymphocytes # 2.3 Monocytes # 1.2 H Eosinophils # 0.0 Basophils # 0.0 Nucleated Red Blood Cells # 0.0 Sodium Level 139 Chloride Level 99 Carbon Dioxide Level 29 Anion Gap 11 Blood Urea Nitrogen 37 H Creatinine 1.34 H Est Glomerular Filtrat Rate mL/min Glucose Level 115 Calcium Level 9.4 Total Bilirubin 0.0 L Direct Bilirubin 0.00 Indirect Bilirubin 0.0 Aspartate Amino Transf (AST/SGOT) 88 H Alanine Aminotransferase (ALT/SGPT) 86 H Alkaline Phosphatase 77 Total Protein 6.7 Albumin 3.5 Globulin 3.20 Albumin/Globulin Ratio 1.09 Medications Current Medications Cefepime HCl 50 ml @ 100 mls/hr Q12 IVPB Last administered on 12/25/18 08:59; Admin Dose 100 MLS/HR; Start 12/20/18 at 21:00 Levalbuterol (Xopenex Neb) 1.25 mg Q4H RESP THERAPY PRN HHN wheezing; Start 12/20/18 at 21:00 Levalbuterol (Xopenex Neb) 1.25 mg Q6H RESP THERAPY HHN Last administered on 12/25/18 08:03; Admin Dose 1.25 MG; Start 12/21/18 at 02:00 Ipratropium [place] (Atrovent 0.02% (Neb)) 0.5 mg Q2H RESP THERAPY PRN HHN SHORTNESS OF BREATH Last administered on 12/21/18 03:06; Admin Dose 0.5 MG; Start 12/20/18 at 21:00 Ipratropium [place] (Atrovent 0.02% (Neb)) 0.5 mg Q6HWA RESP THERAPY HHN Last administered on 12/25/18 08:03; Admin Dose 0.5 MG; Start 12/21/18 at 08:00 Budesonide (Pulmicort (Neb)) 0.5 mg BID RESP THERAPY HHN Last administered on 12/25/18 08:09; Admin Dose 0.5 MG; Start 12/21/18 at 09:00 Ondansetron HCl (Zofran Inj) 4 mg Q6H PRN IV NAUSEA/VOMITING Last administered on 12/21/18 06:41; Admin Dose 4 MG; Start 12/20/18 at 21:00 Acetaminophen (Tylenol Tab) 650 mg Q6H PRN PO .PAIN 1-3 OR TEMP; Start 12/20/18 at 21:00 Clopidogrel Bisulfate (plaVIX) 75 mg DAILY PO Last administered on 12/25/18 08:59; Admin Dose 75 MG; Start 12/21/18 at 09:00 EZETIMIBE (Zetia) 10 mg HS PO Last administered on 12/24/18 20:44; Admin Dose 10 MG; Start 12/21/18 at 21:00 Folic Acid (Folic Acid) 1 mg DAILY PO Last administered on 12/25/18 09:01; Admin Dose 1 MG; Start 12/21/18 at 09:00 Amylase/Lipase/ Protease (Creon ([id number])) 1 cap WITH MEALS PO Last administered on 12/25/18 09:00; Admin Dose 1 CAP; Start 12/21/18 at 07:35 Pregabalin (Lyrica) 75 mg DAILY PO Last administered on 12/25/18 09:00; Admin Dose 75 MG; Start 12/21/18 at 09:00 Atorvastatin Calcium (Lipitor) 20 mg QHS PO Last administered on 12/24/18 20:44; Admin Dose 20 MG; Start 12/21/18 at 21:00 Docusate Sodium (Colace) 100 mg BID PO Last administered on 12/25/18 09:01; Admin Dose 100 MG; Start 12/20/18 at 21:30 Polyethylene Glycol (Miralax) 17 gm DAILY PRN PO CONSTIPATION Last administered on 12/23/18 09:47; Admin Dose 17 GM; Start 12/20/18 at 21:30 Promethazine HCl/ Codeine (Phenergan/ Codeine) 5 ml Q4H PRN PO COUGH Last administered on 12/21/18 16:39; Admin Dose 5 ML; Start 12/21/18 at 09:00 Lidocaine (Lidoderm) 1 patch DAILY TD Last administered on 12/25/18 08:59; Admin Dose 1 PATCH; Start 12/21/18 at 12:00 Nicotine (Nicoderm 14 Mg/ 24hr) 1 patch DAILY TRANSDERM Last administered on 12/25/18 09:00; Admin Dose 1 PATCH; Start 12/23/18 at 12:00 Clonidine (Catapres) 0.1 mg Q6H PRN PO SBP GREATER THAN 160 Last administered on 12/24/18 11:44; Admin Dose 0.1 MG; Start 12/24/18 at 11:30 Assessment/Plan Hospital Course (Demo Recall) IMPRESSION 1. Recent mechanical fall. 2. Community-acquired pneumonia. 3. Chronic obstructive pulmonary disease with possible acute exacerbation. plan 1. Continue bronchodilators. 2. Incentive spirometry. 3. Steroid taper. 4. Advice on smoking cessation. 5. DVT and GI prophylaxis. 6. Consider de-escalation of antibiotics. dc planning [facility] Ruby [facility] Dec 25, 2018 11:20
--- NOTE | 2018-12-25 11:57 | NUR ---
Discharge arrangements Followed up with resuming home health services, reached out to Kayla and provided [facility] . Contacted [facility], upon call back spoke with Sharon and faxed clinical reports to . They will be able to follow patient upon discharge, will inform Care Team.
--- NOTE | 2018-12-25 14:14 | CONS ---
Assessment/Plan Assessment/Plan Assessment/Plan (Daily) # CKD Non-nephrotic proteinuria Serologies pending Consider starting an ACEI or AFB # Hyperkalemia Resolved # s/p fall # PNA/COPD # For discharge today. Follow up with Dr. Gleason in 2 weeks Consultation Date/Type/Reason Admit Date/Time Dec 20, 2018 at 20:38 Initial Consult Date 12/23/18 Type of Consult Nephrology Requesting Provider: SOFIA QUIROZ MD Date/Time of Note DATE: 12/25/18 TIME: 14:10 24 HR Interval Summary Free Text/Dictation Alert, no complaints Exam/Review of Systems Exam Vitals Vital Signs Date Temp Pulse Resp B/P (MAP) Pulse Ox O2 O2 Flow FiO2 Time Delivery Rate 12/25/18 88 16 98 21 13:10 12/25/18 Nasal 2.0 09:48 Cannula 12/25/18 98.0 159/84 07:50 (109) Intake and Output 12/24/18 12/24/18 12/25/18 1515:00 23:00 07:00 IntakeIntake Total 770 ml 350 ml 240 ml BalanceBalance 770 ml 350 ml 240 ml Neck: supple; No jvd Respiratory: clear to auscultation Cardiovascular: regular rate and rhythm Extremities: No edema Results Result Diagram: 12/25/18 0515 12/25/18 0515 Results 24hrs Laboratory Tests Test 12/24/18 14:51 12/25/18 05:15 Potassium Level 4.4 4.4 White Blood Count 16.8 H Red Blood Count 4.00 L Hemoglobin 10.5 L Hematocrit 32.2 L Mean Corpuscular Volume 80.5 L Mean Corpuscular Hemoglobin 26.3 L Mean Corpuscular Hemoglobin Concent 32.6 Red Cell Distribution Width 15.5 H Platelet Count 338 Mean Platelet Volume 11.1 H Immature Granulocytes % 1.900 H Neutrophils % 77.1 H Lymphocytes % 13.6 L Monocytes % 7.0 Eosinophils % 0.2 Basophils % 0.2 Nucleated Red Blood Cells % 0.0 Immature Granulocytes # 0.320 H Neutrophils # 13.0 H Lymphocytes # 2.3 Monocytes # 1.2 H Eosinophils # 0.0 Basophils # 0.0 Nucleated Red Blood Cells # 0.0 Sodium Level 139 Chloride Level 99 Carbon Dioxide Level 29 Anion Gap 11 Blood Urea Nitrogen 37 H Creatinine 1.34 H Est Glomerular Filtrat Rate mL/min Glucose Level 115 Calcium Level 9.4 Total Bilirubin 0.0 L Direct Bilirubin 0.00 Indirect Bilirubin 0.0 Aspartate Amino Transf (AST/SGOT) 88 H Alanine Aminotransferase (ALT/SGPT) 86 H Alkaline Phosphatase 77 Total Protein 6.7 Albumin 3.5 Globulin 3.20 Albumin/Globulin Ratio 1.09 Complement C3 103 Complement C4 26 Medications Medication Current Medications Cefepime HCl 50 ml @ 100 mls/hr Q12 IVPB Last administered on 12/25/18 08:59; Admin Dose 100 MLS/HR; Start 12/20/18 at 21:00 Levalbuterol (Xopenex Neb) 1.25 mg Q4H RESP THERAPY PRN HHN wheezing; Start 12/20/18 at 21:00 Levalbuterol (Xopenex Neb) 1.25 mg Q6H RESP THERAPY HHN Last administered on 12/25/18 13:09; Admin Dose 1.25 MG; Start 12/21/18 at 02:00 Ipratropium [place] (Atrovent 0.02% (Neb)) 0.5 mg Q2H RESP THERAPY PRN HHN SHORTNESS OF BREATH Last administered on 12/21/18 03:06; Admin Dose 0.5 MG; Start 12/20/18 at 21:00 Ipratropium [place] (Atrovent 0.02% (Neb)) 0.5 mg Q6HWA RESP THERAPY HHN Last administered on 12/25/18 13:09; Admin Dose 0.5 MG; Start 12/21/18 at 08:00 Budesonide (Pulmicort (Neb)) 0.5 mg BID RESP THERAPY HHN Last administered on 12/25/18 08:09; Admin Dose 0.5 MG; Start 12/21/18 at 09:00 Ondansetron HCl (Zofran Inj) 4 mg Q6H PRN IV NAUSEA/VOMITING Last administered on 12/21/18 06:41; Admin Dose 4 MG; Start 12/20/18 at 21:00 Acetaminophen (Tylenol Tab) 650 mg Q6H PRN PO .PAIN 1-3 OR TEMP; Start 12/20/18 at 21:00 Clopidogrel Bisulfate (plaVIX) 75 mg DAILY PO Last administered on 12/25/18 08:59; Admin Dose 75 MG; Start 12/21/18 at 09:00 EZETIMIBE (Zetia) 10 mg HS PO Last administered on 12/24/18 20:44; Admin Dose 10 MG; Start 12/21/18 at 21:00 Folic Acid (Folic Acid) 1 mg DAILY PO Last administered on 12/25/18 09:01; Admin Dose 1 MG; Start 12/21/18 at 09:00 Amylase/Lipase/ Protease (Creon ([id number])) 1 cap WITH MEALS PO Last administered on 12/25/18 11:37; Admin Dose 1 CAP; Start 12/21/18 at 07:35 Pregabalin (Lyrica) 75 mg DAILY PO Last administered on 12/25/18 09:00; Admin Dose 75 MG; Start 12/21/18 at 09:00 Atorvastatin Calcium (Lipitor) 20 mg QHS PO Last administered on 12/24/18 20:44; Admin Dose 20 MG; Start 12/21/18 at 21:00 Docusate Sodium (Colace) 100 mg BID PO Last administered on 12/25/18 09:01; Admin Dose 100 MG; Start 12/20/18 at 21:30 Polyethylene Glycol (Miralax) 17 gm DAILY PRN PO CONSTIPATION Last administered on 12/23/18 09:47; Admin Dose 17 GM; Start 12/20/18 at 21:30 Promethazine HCl/ Codeine (Phenergan/ Codeine) 5 ml Q4H PRN PO COUGH Last administered on 12/21/18 16:39; Admin Dose 5 ML; Start 12/21/18 at 09:00 Lidocaine (Lidoderm) 1 patch DAILY TD Last administered on 12/25/18 08:59; Admin Dose 1 PATCH; Start 12/21/18 at 12:00 Nicotine (Nicoderm 14 Mg/ 24hr) 1 patch DAILY TRANSDERM Last administered on 12/25/18 09:00; Admin Dose 1 PATCH; Start 12/23/18 at 12:00 Clonidine (Catapres) 0.1 mg Q6H PRN PO SBP GREATER THAN 160 Last administered on 12/24/18 11:44; Admin Dose 0.1 MG; Start 12/24/18 at 11:30 VIKAS HERNANDEZ MD Dec 25, 2018 14:14
[2018-12-25 14:19] VITALS: BP 149/83; PULSE 109; RESP 16
--- NOTE | 2018-12-25 14:30 | NUR ---
Nurse Notes: Patient alert and oriented x 4, remained stable throughout the shift with no acute changes. No changes in LOC or mentation. No SOB or distress. Breathing treatments were provided by RT. All due medications were given, tolerated well. Safety precautions observed at all times. Frequent visual checks provided. Patient was discharged home with Mary (daughter) in stable condition. Health teachings were provided to patient and daughter, daughter Mary able to verbalized understanding using teach back method. Also instructed the patient and dtr that per Dr. Martinez that MD will send the prescription directly to pt's pharmacy. All belongings complete. No missing items noted. Patient refused picture to be taken on his buttocks and heels since he is in a reyes to go home. Instructed the dtyr the need to schedule follow up appts with Dr. Martinez, Dr. Ruddy Finn and Dr. Hendricks. Patient and family refused volunteer to accompany the patient to exit. Left the unit with No SOB or distress, denies any pain or any discomforts. Able to ambulate in steady gait.
[2018-12-27 18:36] LABS: PTH CALCIUM 9.4 mg/dL (8.6-10.3)
== END 2018-12-25 14:30 | disposition home health service (06) | DRG 871 ==
LOC: E/R 17:20 → ICU 20:38 → PP2 12-21 19:10
PROVIDERS: ADMIT Internal Medicine; ATTEND Family Medicine
DX: A41.9 Sepsis, unspecified organism (principal); J18.9 Pneumonia, unspecified organism; I50.31 Acute diastolic (congestive) heart failure; J44.1 Chronic obstructive pulmonary disease with (acute) exacerbation; N17.9 Acute kidney failure, unspecified; I13.0 Hypertensive heart and chronic kidney disease with heart failure and stage 1 through stage 4 chronic kidney disease, or unspecified chronic kidney disease; I11.0 Hypertensive heart disease with heart failure; E87.5 Hyperkalemia; E86.0 Dehydration; Z99.81 Dependence on supplemental oxygen; N18.3 Chronic kidney disease, stage 3 (moderate); D63.8 Anemia in other chronic diseases classified elsewhere; R55 Syncope and collapse; R07.81 Pleurodynia; K59.00 Constipation, unspecified; I73.9 Peripheral vascular disease, unspecified; E78.5 Hyperlipidemia, unspecified; F17.200 Nicotine dependence, unspecified, uncomplicated; W19.XXXA Unspecified fall, initial encounter; I25.10 Atherosclerotic heart disease of native coronary artery without angina pectoris; F32.9 Major depressive disorder, single episode, unspecified; K21.9 Gastro-esophageal reflux disease without esophagitis; F41.9 Anxiety disorder, unspecified; Y95 Nosocomial condition; F17.210 Nicotine dependence, cigarettes, uncomplicated; Z79.82 Long term (current) use of aspirin; Z79.02 Long term (current) use of antithrombotics/antiplatelets
CPT/HCPCS: 36415; 70450; 71045; 71250; 74176; 76775; 80048; 80053; 80061; 81001; 81003; 82570; 83036; 83540; 83605; 83690; 83735; 83970; 84100; 84132; 84155; 84165; 84443; 84484; 85025; 85610; 85730; 86021; 86038; 86160; 87040; 87086; 93005; 93306; 93880; 94640; 94664; 96374; 96375; 97161; J0692; J1885; J1940; J2270; J2405; J2920; J2930; J3370; J3475; J7030; J7042